=== PATIENT | male | born 1955 | race Caucasian/White ===

== ENCOUNTER 2018-12-06 11:16 | Emergency (ER) | payer MEDICARE, BC ==
[2018-12-06 11:39] VITALS: O2SAT 98
[2018-12-06 12:02] LABS: BASOPHIL % 0.4 % (0.0-0.4); Basophil (Absolute #) 0.02 (0-0.4); Eosinophil % 1.3 % (0.00-5.0); Eosinophil (Absolute #) 0.07 (0-0.5); Granulocyte Absolute (ANC) 2.94 (1.4-6.9); Granulocytes % 55.6 % (36.0-66.0); Hematocrit 48.4 % (42-50); Hemoglobin 16.6 gm/dl (12.5-18.0); Lymphocyte (Absolute #) 1.65 (1.0-4.6); Lymphocytes % 31.2 % (24.0-44.0); Mean Cell Volume 87.2 fl (78-100); Mean Corpuscular Hemoglobin 29.9 pg (26-32); Mean Corpuscular Hgb Concent. 34.3 g/dl (32-36); Mean Platelet Volume 9.3 fl (6-9.5); Monocyte (Absolute #) 0.61 (0.0-1.3); Monocytes % 11.5 % (0.0-12.0); Platelet Count 187 K/mm3 (150-450); Red Blood Count 5.55 M/mm3 (4.1-5.6); Red Cell Distribution Width 14.7 % (11.5-14.0); White Blood Count 5.3 K/mm3 (4.0-10.5)
[2018-12-06 12:12] LABS: INR 1.07 (0.8-3.0); PROTIME 12.4 SECONDS (8.83-12.87)
[2018-12-06 12:14] LABS: ALBUMIN 4.1 g/dL (3.5-5.0); ALKALINE PHOSPHATASE 78 U/L (38-126); ANION GAP 15.8 MEQ/L (5-15); BLOOD UREA NITROGEN 14 mg/dL (9-20); CHLORIDE 100 mmol/L (98-107); Calcium 9.4 mg/dL (8.4-10.2); Carbon Dioxide 26 mmol/L (22-30); Creatinine 1 1.21 mg/dL (0.66-1.25); Glucose 222 mg/dL (74-106); Potassium 4.5 mmol/L (3.5-5.1); SGOT/AST 36 U/L (17-59); SGPT/ALT 46 U/L (0-50); SODIUM 138 mmol/L (137-145); Total Protein 7.9 g/dL (6.3-8.2)
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
[2018-12-06 12:29] VITALS: BP 156/99; PULSE 73
[2018-12-06 12:49] LABS: Amphetamine,Urine NEGATIVE (NEGATIVE); Barbiturate,Urine NEGATIVE (NEGATIVE); Benzodiazepine,Urine NEGATIVE (NEGATIVE); Cocaine,Urine NEGATIVE (NEGATIVE); Methadone,Urine NEGATIVE (NEGATIVE); Opiate,Urine NEGATIVE (NEGATIVE); PCP,Urine NEGATIVE (NEGATIVE); THC,Urine NEGATIVE (NEGATIVE)
[2018-12-06 13:21] LABS: Appearance CLEAR (CLEAR); Bilirubin NEGATIVE (NEGATIVE); Blood NEGATIVE Ery/ul (0-5); Glucose 50 mg/dL (NEGATIVE); Ketones NEGATIVE (NEGATIVE); Leukocyte Esterase NEGATIVE (NEGATIVE); Mucus SLIGHT /HPF (NEGATIVE); Nitrite NEGATIVE (NEGATIVE); Protein,Urine Dip NEGATIVE (Negative); Specific Gravity 1.017 (1.005-1.025); Urobilinogen NEGATIVE mg/dL (0-1)
--- NOTE | 2018-12-06 20:40 | XRAY ---
Indication: Change in mental status. Weakness. Possible stroke. Comparison: None Portable chest is clear. Heart is not enlarged for AP portable technique. Bony thorax intact with mild degenerative changes. Impression: Nonacute chest.
--- NOTE | 2018-12-06 20:43 | XRAY ---
Indication: Change in mental status. Weakness. Possible stroke. Multiple contiguous axial images obtained through the head without contrast. Comparison: None Age-appropriate global atrophy and mild periventricular degenerative microvascular ischemia bilaterally. Right basal ganglia remote lacunar infarct. No acute intracranial hemorrhage, abnormal extra-axial fluid collection, or mass effect. Fourth ventricle is midline without hydrocephalus. Bony calvarium intact. Mild mucosal thickening inferior right maxillary sinus. Partial opacification of the right mastoid air cells. Impression: 1. Nonacute senile brain including remote right basal ganglia lacunar infarct. 2. Incidental right maxillary sinus mucosal thickening and partial opacification of the right mastoid air cells both presumed inflammatory. Comment: Preliminary interpretation was made by [facility]. No critical discrepancy. CTDI 66.59
== END 2018-12-06 13:06 | disposition short-term general hospital (02) ==
LOC: ED 11:16
DX: I63.9 Cerebral infarction, unspecified (principal)
CPT/HCPCS: 36000; 36415; 70450; 71045; 80053; 80307; 81001; 84484; 85025; 85610; 85730; 93005; 93041; 99285; G0480

== ENCOUNTER 2020-08-15 07:27 | Emergency (ER) | payer MEDICARE, BC ==
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
[2020-08-15 07:51] LABS: BASOPHIL % 0.4 % (0.0-0.4); Basophil (Absolute #) 0.04 (0-0.4); Eosinophil % 1.8 % (0.00-5.0); Eosinophil (Absolute #) 0.17 (0-0.5); Hematocrit 48.4 % (42-50); Lymphocyte (Absolute #) 1.35 (1.0-4.6); Lymphocytes % 14.4 % (24.0-44.0); Mean Cell Volume 87.7 fl (78-100); Mean Corpuscular Hgb Concent. 33.1 g/dl (32-36); Mean Platelet Volume 9.8 fl (7.5-11.0); Monocyte (Absolute #) 1.12 (0.0-1.3); Monocytes % 11.9 % (0.0-12.0); Neutrophil % 71.5 % (36.0-66.0); Platelet Count 173 K/mm3 (150-450); Red Blood Count 5.52 M/mm3 (4.1-5.6); Red Cell Distribution Width 15.5 % (11.5-14.0); White Blood Count 9.4 K/mm3 (4.0-10.5)
[2020-08-15 08:02] LABS: ALBUMIN 4.2 g/dL (3.5-5.0); ALKALINE PHOSPHATASE 85 U/L (38-126); ANION GAP 15.1 MEQ/L (5-15); BLOOD UREA NITROGEN 14 mg/dL (9-20); CHLORIDE 100 mmol/L (98-107); Calcium 9.3 mg/dL (8.4-10.2); Carbon Dioxide 22 mmol/L (22-30); Creatinine 1 1.11 mg/dL (0.66-1.25); EST GLOMERULAR FILTRATION RATE > 60.0 ML/MIN; Glucose 323 mg/dL (74-106); Potassium 4.3 mmol/L (3.5-5.1); SGOT/AST 25 U/L (17-59); SGPT/ALT 24 U/L (0-50); SODIUM 132 mmol/L (137-145); Total Protein 8.1 g/dL (6.3-8.2)
[2020-08-15 08:17] LABS: Appearance CLOUDY (CLEAR); Bacteria FEW /HPF (NEGATIVE); Bilirubin NEGATIVE (NEGATIVE); Blood SMALL Ery/ul (0-5); Epithelial Cells RARE /HPF (FEW); Glucose >=500 mg/dL (NEGATIVE); Hyaline Casts >50 /LPF (0-2); Ketones NEGATIVE (NEGATIVE); Leukocyte Esterase MODERATE (NEGATIVE); Mucus MANY /HPF (NEGATIVE); Nitrite NEGATIVE (NEGATIVE); Protein,Urine Dip 100 (Negative); Specific Gravity 1.026 (1.005-1.025); Urobilinogen 2 mg/dL (0-1); WBC 26-50 /HPF (0-5)
[2020-08-15] MEDS ORDERED: HUMULIN R IV ONE (08:24)
[2020-08-15] MEDS ORDERED: ROCEPHIN 1 Gm-D5w 50 ml Bag** 1 G/50 ML IVPB IV STA (08:24)
[2020-08-15] MEDS ORDERED: Sodium Chloride 0.9% 500 ML 500 ML IV ONE ×2 (08:24→08:50)
--- NOTE | 2020-08-15 08:43 | XRAY ---
Indication: Dizziness and numbness. Possible stroke. Multiple contiguous axial images obtained through the head without contrast. Comparison: December 06, 2018. Again age-appropriate global atrophy, mild periventricular degenerative micro-ischemia bilaterally, and old bilateral basal ganglia lacunar infarcts. Left mid parietal lobe demonstrates new small focus of old infarct. No acute intracranial hemorrhage, hydrocephalus, or mass effect. Fourth ventricle is midline. Bony calvarium intact. Inferior right maxillary sinus again demonstrates 1.5 cm polyp/retention cyst. There remains partial opacification of the right mastoid air cells. Impression: 1. New finding old left parietal infarct. 2. Again atrophy, degenerative micro-ischemia, remote basal ganglia lacunar infarcts, right maxillary sinus polyp/retention cyst, and partial opacification right mastoid air cells. 3. No acute intracranial abnormalities. 4. Follow-up CT or MRI may yield further information if there remains clinical concern. Comment: Preliminary interpretation was made by [facility]. No critical discrepancy.
[2020-08-15] MEDS ORDERED: HUMULIN R ONE (08:49)
[2020-08-15] MEDS ORDERED: ROCEPHIN 1 Gm-D5w 50 ml Bag** 1 G/50 ML IVPB IV ONE (08:50)
[2020-08-15 10:05] VITALS: BP 135/79; PULSE 82; O2SAT 98
== END 2020-08-15 10:52 | disposition home or self-care (01) ==
LOC: ED 07:27
DX: R42 Dizziness and giddiness (principal); R20.0 Anesthesia of skin; E11.65 Type 2 diabetes mellitus with hyperglycemia; N39.0 Urinary tract infection, site not specified; Z79.84 Long term (current) use of oral hypoglycemic drugs; Z79.899 Other long term (current) drug therapy; I10 Essential (primary) hypertension
CPT/HCPCS: 36415; 70450; 80053; 81001; 85025; 87086; 93005; 94760; 96360; 96365; 96374; 99284; J0696; J1815

== ENCOUNTER 2020-09-29 12:11 | Inpatient (IN) | payer MEDICARE, BC ==
[2020-09-29] MEDS ORDERED: Adacel Vial IM ONE ×2 (12:28→13:12)
[2020-09-29] MEDS ORDERED: Sodium Chloride 0.9% 1000 ML 1,000 ML IV STA ×2 (12:28→16:25)
[2020-09-29] MEDS ORDERED: VANCOMYCIN 2 GRAM/400 ML BAG 2 GM/400 ML PIGGYBACK IV ONE (12:31)
[2020-09-29] MEDS ORDERED: Zosyn INJ 4.5 GM in Sodium Chloride 100ML MINI-BAG PLUS 100 ML IV ONE (12:31)
[2020-09-29 12:37] LABS: Absolute Neutrophil Ct (ANC) 7.44 (1.4-6.9); BASOPHIL % 0.2 % (0.0-0.4); Basophil (Absolute #) 0.02 (0-0.4); Eosinophil % 1.4 % (0.00-5.0); Eosinophil (Absolute #) 0.14 (0-0.5); Hematocrit 42.9 % (42-50); Hemoglobin 13.5 gm/dl (12.5-18.0); Lymphocyte (Absolute #) 1.07 (1.0-4.6); Lymphocytes % 10.6 % (24.0-44.0); Mean Cell Volume 87.4 fl (78-100); Mean Corpuscular Hemoglobin 27.5 pg (26-32); Mean Corpuscular Hgb Concent. 31.5 g/dl (32-36); Mean Platelet Volume 9.1 fl (7.5-11.0); Monocyte (Absolute #) 1.39 (0.0-1.3); Monocytes % 13.8 % (0.0-12.0); Platelet Count 393 K/mm3 (150-450); Red Blood Count 4.91 M/mm3 (4.1-5.6); Red Cell Distribution Width 15.1 % (11.5-14.0); White Blood Count 10.1 K/mm3 (4.0-10.5)
--- NOTE | 2020-09-29 12:45 | ERPHSYRPT ---
- History of Present Illness Time Seen by Provider: 09/29/20 12:15 Source: patient Exam Limitations: no limitations Physician History: Patient is here with right lower leg infection. He is unsure of how long it has been going on for. He is unsure what antibiotics he is on. He was supposed to see Dr. Merlos today. However, he could not walk. Therefore called EMS. As I enter the room I can smell a foul smell. Patient's right leg is red and swollen and taut. Patient is unable to give an accurate history. Location: right lower leg Quality: infection, sharp Radiation: down right leg Severity: sharp Duration: unsure Timing: gradual Modifying factors/associated signs and symptoms: unsure what antibiotics he is suppose to be on Allergies/Adverse Reactions: No Known Drug Allergies Allergy (Verified 09/29/20 12:15) Home Medications: Metformin HCl 500 mg PO BID 12/06/18 [History] lisinopriL [Lisinopril] 20 mg PO BID 12/06/18 [History] Amlodipine Besylate [Norvasc] 10 mg PO DAILY 08/15/20 [History] Atorvastatin Calcium [Lipitor] 80 mg PO DAILY 08/15/20 [History] Carvedilol 12.5 mg [Coreg 12.5 mg] 12.5 mg PO DAILY 08/15/20 [History] Clopidogrel Bisulfate 75 mg [PLAVIX 75 MG Tablet] 75 mg PO DAILY 08/15/20 [History] Dapagliflozin Propanediol [Farxiga] 10 mg PO DAILY 08/15/20 [History] Metoprolol Succinate [Toprol Xl] 25 mg PO DAILY 08/15/20 [History] Tramadol HCl 50 mg [Ultram 50 mg] 50 mg PO DAILY 08/15/20 [History] Hx Tetanus, Diphtheria Vaccination/Date Given: No Hx Influenza Vaccination/Date Given: No Hx Pneumococcal Vaccination/Date Given: No - Review of Systems Constitutional: No Fever, No Chills Eyes: No Symptoms Ears, Nose, & Throat: No Symptoms Respiratory: No Cough, No Dyspnea Cardiac: No Chest Pain, No Edema, No Syncope Abdominal/Gastrointestinal: No Abdominal Pain, No Nausea, No Vomiting, No Diarrhea Genitourinary Symptoms: No Dysuria Musculoskeletal: Other (right lower leg pain , and infection ), No Back Pain, No Neck Pain Skin: No Rash Neurological: No Dizziness, No Focal Weakness, No Sensory Changes Psychological: No Symptoms Endocrine: No Symptoms All Other Systems: Reviewed and Negative - Past Medical History Pertinent Past Medical History: Yes Neurological History: Stroke, Other ENT History: No Pertinent History Cardiac History: Hypertension, Other Respiratory History: No Pertinent History Endocrine Medical History: Diabetes Type II Musculoskeletal History: Arthritis GI Medical History: No Pertinent History Psycho-Social History: No Pertinent History Male Reproductive Disorders: No Pertinent History Other Medical History: enlarged heart, head injuries from accident 25 years ago. - Past Surgical History Past Surgical History: No - Social History Smoking Status: Never smoker Exposure to second hand smoke: Yes Drug Use: none Patient Lives Alone: No - Nursing Vital Signs Nursing Vital Signs: Initial Vital Signs Temperature 98.0 F 09/29/20 12:17 Pulse Rate 78 09/29/20 12:17 Respiratory Rate 18 09/29/20 12:17 Blood Pressure 138/79 09/29/20 12:17 O2 Sat by Pulse Oximetry 98 09/29/20 12:17 Pain Scale Pain Intensity 2 - Physical Exam General Appearance: alert Eyes, Ears, Nose, Throat Exam: moist mucous membranes Neck Exam: non-tender, supple Cardiovascular/Respiratory Exam: chest non-tender, normal breath sounds, regular rate/rhythm, no respiratory distress Gastrointestinal/Abdominal Exam: non-tender, guarding Back Exam: normal inspection, No vertebral tenderness Neuro/Tendon Exam: normal sensation, normal motor functions Mental Status Exam: alert, oriented x 3, cooperative Skin Exam: normal color, warm, dry SpO2 Interpretation: normal SpO2: 98 Comments: Right lower leg is red, tender, large draining wound. The necrotic part is 10 inches X 3 inches. With redness extending past the edges. - Course Nursing assessment & vital signs reviewed: Yes Ordered Tests: Active Orders 24 hr Category Date Time Status Up With Assistance ROUTINE Activity 09/29/20 13:49 Active Admit as Inpatient ROUTINE Care 09/29/20 13:49 Active Code Status Order ROUTINE Care 09/29/20 13:49 Active EKG-ER Only STAT Care 09/29/20 12:47 Active Fall Protocol ROUTINE Care 09/29/20 13:50 Active IV Care Q6H Care 09/29/20 13:49 Active IV Insertion STAT Care 09/29/20 12:28 Active POCT Glucose Check STAT Care 09/29/20 12:28 Active Heart-Healthy Diet Diet 09/29/20 Breakfast Active LOWER LEG Stat Exams 09/29/20 12:58 Completed BLOOD CULTURE Stat Lab 09/29/20 13:00 Received CBC W DIFF AM.LAB Lab 09/30/20 04:00 Ordered CBC W DIFF Stat Lab 09/29/20 12:38 Completed CMP AM.LAB Lab 09/30/20 04:00 Ordered CMP Stat Lab 09/29/20 12:38 Completed CULTURE,WOUND Stat Lab 09/29/20 Ordered Lactic Acid AM.LAB Lab 09/30/20 04:00 Ordered Lactic Acid Stat Lab 09/29/20 12:28 Completed POCT GLUCOSE Stat Lab 09/29/20 13:08 Completed Urine Triage Profile Stat Lab 09/29/20 12:30 Ordered Medication Summary Generic Name Dose Route Start Last Admin Trade Name Freq PRN Reason Stop Dose Admin Vancomycin HCl 2 gm in 400 mls @ 133.333 mls/hr 09/29/20 12:31 Vancomycin 2 Gram/400 Ml Bag IV 09/29/20 15:30 STAT ONE Discontinued Medications Generic Name Dose Route Start Last Admin Trade Name Freq PRN Reason Stop Dose Admin Diphtheria/Tetanus/Acell Pertussis 0.5 ml 09/29/20 12:28 09/29/20 13:14 Adacel Vial IM 09/29/20 12:29 0.5 ml .ONCE ONE Administration Diphtheria/Tetanus/Acell Pertussis Confirm 09/29/20 13:12 Adacel Vial Administered 09/29/20 13:13 Dose 0.5 ml IM .STK-MED ONE Sodium Chloride 1,000 mls @ 999 mls/hr 09/29/20 12:28 09/29/20 13:16 Sodium Chloride 0.9% 1000 Ml IV 09/29/20 13:28 999 mls/hr .Q1H1M STA Administration Piperacillin Sod/Tazobactam 100 mls @ 200 mls/hr 09/29/20 12:31 09/29/20 13:15 Sod 4.5 gm/ Sodium Chloride IV 09/29/20 13:00 200 mls/hr STAT ONE Administration Sodium Chloride Confirm 09/29/20 13:12 Sodium Chloride 0.9% 1000 Ml Administered 09/29/20 13:13 Dose 1,000 mls @ ud .ROUTE .STK-MED ONE Sodium Chloride Confirm 09/29/20 13:13 Sodium Chloride 100ml Mini-Bag Plus Administered 09/29/20 13:14 Dose 100 mls @ ud IV .STK-MED ONE Piperacillin Sod/Tazobactam Sod Confirm 09/29/20 13:13 Zosyn Inj Administered 09/29/20 13:14 Dose 4.5 gm IV .STK-MED ONE Lab/Rad Data: Laboratory Result Diagrams 09/29/20 12:38 09/29/20 12:38 Laboratory Results 09/29/20 09/29/20 09/29/20 Range/Units 13:08 12:38 12:38 WBC 10.1 (4.0-10.5) K/mm3 RBC 4.91 (4.1-5.6) M/mm3 Hgb 13.5 (12.5-18.0) gm/dl Hct 42.9 (42-50) % MCV 87.4 (78-100) fl MCH 27.5 (26-32) pg MCHC 31.5 L (32-36) g/dl RDW 15.1 H (11.5-14.0) % Plt Count 393 (150-450) K/mm3 MPV 9.1 (7.5-11.0) fl Gran % 74.0 H (36.0-66.0) % Eos # (Auto) 0.14 (0-0.5) Absolute Lymphs (auto) 1.07 (1.0-4.6) Absolute Monos (auto) 1.39 H (0.0-1.3) Lymphocytes % 10.6 L (24.0-44.0) % Monocytes % 13.8 H (0.0-12.0) % Eosinophils % 1.4 (0.00-5.0) % Basophils % 0.2 (0.0-0.4) % Absolute Granulocytes 7.44 H (1.4-6.9) Basophils # 0.02 (0-0.4) Sodium 132 L (137-145) mmol/L Potassium 4.2 (3.5-5.1) mmol/L Chloride 94 L (98-107) mmol/L Carbon Dioxide 26 (22-30) mmol/L Anion Gap 15.1 H (5-15) MEQ/L BUN 18 (9-20) mg/dL Creatinine 1.14 (0.66-1.25) mg/dL Estimated GFR > 60.0 ML/MIN Glucose 231 H (74-106) mg/dL POC Glucometer 232 H (74 to 106) mg/dL Lactic Acid (0.4-2.0) Calcium 9.4 (8.4-10.2) mg/dL Total Bilirubin 0.40 (0.2-1.3) mg/dL AST 20 (17-59) U/L ALT 19 (0-50) U/L Alkaline Phosphatase 90 (38-126) U/L Serum Total Protein 8.5 H (6.3-8.2) g/dL Albumin 4.2 (3.5-5.0) g/dL 09/29/20 Range/Units 12:28 WBC (4.0-10.5) K/mm3 RBC (4.1-5.6) M/mm3 Hgb (12.5-18.0) gm/dl Hct (42-50) % MCV (78-100) fl MCH (26-32) pg MCHC (32-36) g/dl RDW (11.5-14.0) % Plt Count (150-450) K/mm3 MPV (7.5-11.0) fl Gran % (36.0-66.0) % Eos # (Auto) (0-0.5) Absolute Lymphs (auto) (1.0-4.6) Absolute Monos (auto) (0.0-1.3) Lymphocytes % (24.0-44.0) % Monocytes % (0.0-12.0) % Eosinophils % (0.00-5.0) % Basophils % (0.0-0.4) % Absolute Granulocytes (1.4-6.9) Basophils # (0-0.4) Sodium (137-145) mmol/L Potassium (3.5-5.1) mmol/L Chloride (98-107) mmol/L Carbon Dioxide (22-30) mmol/L Anion Gap (5-15) MEQ/L BUN (9-20) mg/dL Creatinine (0.66-1.25) mg/dL Estimated GFR ML/MIN Glucose (74-106) mg/dL POC Glucometer (74 to 106) mg/dL Lactic Acid 3.0 H (0.4-2.0) Calcium (8.4-10.2) mg/dL Total Bilirubin (0.2-1.3) mg/dL AST (17-59) U/L ALT (0-50) U/L Alkaline Phosphatase (38-126) U/L Serum Total Protein (6.3-8.2) g/dL Albumin (3.5-5.0) g/dL - Progress Progress: improved Progress Note: 09/29/20 13:52 Patient has obvious right lower leg infection. I did have the DPM, Dr. Bergman look at the wound in the emergency department. We did not see any obvious gas or signs of necrotizing fasciitis on x-ray. He feels that he can debride the wound on Friday. He states that he will watch it closely over the weekend. Requested that we admit to the hospital team. Patient started on vancomycin and Zosyn. Broad-spectrum coverage. Further antibiotic coverage per Dr. Merlos. I did discuss with him over the phone. Will admit the patient to the hospital. Patient is comfortable with the plan. Discussed with : Murphy Will see patient in: hospital (full admit) Counseled pt/family regarding: lab results, diagnosis, rad results - Departure Departure Disposition: In-patient Admission Clinical Impression: Infected leg abrasion Condition: Stable Critical Care Time: No Referrals: [facility] [Primary Care Provider] -
[2020-09-29 12:54] LABS: ALBUMIN 4.2 g/dL (3.5-5.0); ALKALINE PHOSPHATASE 90 U/L (38-126); ANION GAP 15.1 MEQ/L (5-15); BLOOD UREA NITROGEN 18 mg/dL (9-20); CHLORIDE 94 mmol/L (98-107); Calcium 9.4 mg/dL (8.4-10.2); Carbon Dioxide 26 mmol/L (22-30); Creatinine 1 1.14 mg/dL (0.66-1.25); EST GLOMERULAR FILTRATION RATE > 60.0 ML/MIN; Glucose 231 mg/dL (74-106); Potassium 4.2 mmol/L (3.5-5.1); SGOT/AST 20 U/L (17-59); SGPT/ALT 19 U/L (0-50); SODIUM 132 mmol/L (137-145); Total Protein 8.5 g/dL (6.3-8.2)
[2020-09-29] MEDS ORDERED: Sodium Chloride 0.9% 1000 ML 1,000 ML ONE (13:12)
[2020-09-29] MEDS ORDERED: Zosyn INJ IV ONE (13:13)
[2020-09-29] MEDS ORDERED: Sodium Chloride 100ML MINI-BAG PLUS 100 ML IV ONE (13:13)
--- NOTE | 2020-09-29 13:14 | XRAY ---
Indication: Anterior tibia/fibular wound. Comparison: None 2 view right lower leg demonstrates mid to distal anterior soft tissue swelling/irregularity presumed known wound, mild knee degenerative arthropathy, and mild vascular calcifications. No other bony, articular, or soft tissue abnormalities.
[2020-09-29 15:09] LABS: Amphetamine,Urine NEGATIVE (NEGATIVE); Barbiturate,Urine NEGATIVE (NEGATIVE); Benzodiazepine,Urine NEGATIVE (NEGATIVE); Cocaine,Urine NEGATIVE (NEGATIVE); Methadone,Urine NEGATIVE (NEGATIVE); Opiate,Urine NEGATIVE (NEGATIVE); PCP,Urine NEGATIVE (NEGATIVE); THC,Urine NEGATIVE (NEGATIVE)
[2020-09-29] MEDS ORDERED: HUMALOG SQ PRN (16:28)
[2020-09-29] MEDS ORDERED: PHARMACY DOSING REQUEST MC ONE (16:29)
[2020-09-29] MEDS: NORCO 5/325 MG PO PRN ×2 (16:51→22:03)
[2020-09-29] MEDS ORDERED: MEDICATION INTERVENTION MC SCH (17:00)
[2020-09-29] MEDS: Glucophage 500 MG PO SCH (17:45)
[2020-09-29] MEDS: Glynase 3 MG PO SCH (17:45)
[2020-09-29] MEDS: Zosyn 3.375 GM Vial 3.375 GM in Sodium Chloride 100ML MINI-BAG PLUS 100 ML IV SCH (17:46)
[2020-09-29] MEDS: MORPHINE SULFATE 2 MG INJ IV PRN (18:52)
[2020-09-29] MEDS ORDERED: NON-FORMULARY ITEM (Apixaban [Eliquis] 5 MG) PO SCH (22:00)
[2020-09-29] MEDS ORDERED: NON-FORMULARY ITEM (Metformin Hcl [Metformin Hcl] 1,000 MG) PO SCH (22:00)
[2020-09-29] MEDS: Klor Con 10 MEQ PO SCH (22:03)
[2020-09-29] MEDS: COREG 12.5 MG PO SCH (22:04)
[2020-09-29] MEDS: Lopressor 25MG Tab PO SCH (22:04)
[2020-09-30] MEDS: Zosyn 3.375 GM Vial 3.375 GM in Sodium Chloride 100ML MINI-BAG PLUS 100 ML IV SCH ×4 (03:34→18:43)
[2020-09-30] MEDS: NORCO 5/325 MG PO PRN (03:34)
[2020-09-30 06:29] LABS: Absolute Neutrophil Ct (ANC) 7.09 (1.4-6.9); BASOPHIL % 0.1 % (0.0-0.4); Basophil (Absolute #) 0.01 (0-0.4); Eosinophil % 0.9 % (0.00-5.0); Eosinophil (Absolute #) 0.09 (0-0.5); Hematocrit 39.6 % (42-50); Hemoglobin 12.3 gm/dl (12.5-18.0); Mean Cell Volume 87.4 fl (78-100); Mean Corpuscular Hemoglobin 27.2 pg (26-32); Mean Corpuscular Hgb Concent. 31.1 g/dl (32-36); Mean Platelet Volume 9.1 fl (7.5-11.0); Monocyte (Absolute #) 1.39 (0.0-1.3); Monocytes % 13.9 % (0.0-12.0); Neutrophil % 71.1 % (36.0-66.0); Platelet Count 364 K/mm3 (150-450); Red Blood Count 4.53 M/mm3 (4.1-5.6); Red Cell Distribution Width 14.9 % (11.5-14.0)
[2020-09-30 06:53] LABS: ALBUMIN 3.6 g/dL (3.5-5.0); ALKALINE PHOSPHATASE 85 U/L (38-126); ANION GAP 11.9 MEQ/L (5-15); BLOOD UREA NITROGEN 15 mg/dL (9-20); CHLORIDE 101 mmol/L (98-107); Calcium 8.4 mg/dL (8.4-10.2); Carbon Dioxide 26 mmol/L (22-30); Creatinine 1 1.17 mg/dL (0.66-1.25); EST GLOMERULAR FILTRATION RATE > 60.0 ML/MIN; Glucose 172 mg/dL (74-106); Potassium 3.8 mmol/L (3.5-5.1); SGOT/AST 17 U/L (17-59); SGPT/ALT 15 U/L (0-50); SODIUM 134 mmol/L (137-145); Total Protein 7.6 g/dL (6.3-8.2)
--- NOTE | 2020-09-30 09:49 | PCM.NOTE ---
Date and Time: 09/30/20 0949 Subjective Assessment: 64 yr old male seen and examined this am following admission for leg wound/infection. Patient reports that he has been dealing with this for months. He reports that he has had drainage from the wound. He reports that he has been checking his BS and BPs at home and reports they have been well controlled. He denies any other issues at this time. - Review of Systems Constitutional: No Fever, No Night Sweats Eyes: No Symptoms Ears, Nose, & Throat: No Symptoms Respiratory: No Cough, No Short Of Breath, No Wheezing Cardiac: No Chest Pain, No Edema Abdominal/Gastrointestinal: No Abdominal Pain, No Nausea, No Vomiting, No Diarrhea, No Constipation Genitourinary Symptoms: No Symptoms Skin: Other (R lower extremity leg wound) Neurological: No Symptoms Psychological: No Alcohol Abuse, No Drug Abuse Hematologic/Lymphatic: No Symptoms Objective Exam General Appearance: obese Neurologic Exam: alert, oriented x 3, cooperative, No disoriented, No confusion, No agitation Skin Exam: other (R lower extremity wound that has dressing on it and drainage that is present but has not soaked through. Malodorous) Wound Assessment: Skin/Wound Assessment Wound/Incision Assessment Start: 09/29/20 19:09 Text: Status: Active Freq: Q8H Protocol: Document 09/30/20 04:00 LB (Rec: 09/30/20 05:01 LB [id number]) Wound/Incision Assessment Right Anterior Calf Wound Assessment Shift Assessment Wound Type Stasis Ulcer Wound Stage Non Pressure Wound Dressing Status Dry & Intact Drainage Amount Minimal Drainage Odor Foul Odor Primary Dressing Non-Adherent Gauze Pads Secondary Dressing Gauze Roll/Wrap Comment dressing intact, shadowing present Wound Photo Photo Taken Yes Eye Exam: eyes nml inspection, No scleral icterus Ears, Nose, Throat Exam: moist mucous membranes, other (Halotosis) Neck Exam: normal inspection Respiratory Exam: normal breath sounds, No chest tenderness, No lungs clear, No respiratory distress, No diminished breath sounds, No crackles/rales, No rhonchi, No wheezing Cardiovascular Exam: regular rate/rhythm, normal heart sounds, No murmur, No friction rub, No gallop Gastrointestinal/Abdomen Exam: soft, normal bowel sounds, No tenderness, No distention, No mass, No guarding OBJECTIVE DATA Vital Signs: Vital Signs - 24 hr Temp Pulse Resp BP Pulse Ox 09/30/20 07:00 97.9 F 64 18 105/56 95 09/30/20 04:00 97.9 F 90 16 137/66 94 L 09/30/20 00:00 98.8 F 95 H 20 172/79 95 09/29/20 19:53 98.5 F 87 16 165/74 95 09/29/20 14:55 98.6 F 77 18 138/66 97 09/29/20 14:54 98.6 F 77 18 138/66 97 09/29/20 14:18 98.6 F 77 18 138/66 97 09/29/20 13:53 98 09/29/20 13:34 73 18 126/70 96 09/29/20 12:17 98.0 F 78 18 138/79 98 Pain Assessment - Last Documented Pain Intensity 3 Pain Scale Used 0-10 Pain Scale Intake and Output: Intake & Output 09/27/20 09/28/20 09/29/20 09/30/20 11:59 11:59 11:59 11:59 Intake Total 1656 Output Total 1650 Balance 6 Weight 119.9 kg Lab Results: Lab Results-Last 24 Hours 09/29/20 09/29/20 09/29/20 Range/Units 12:28 12:38 12:38 WBC 10.1 (4.0-10.5) K/mm3 RBC 4.91 (4.1-5.6) M/mm3 Hgb 13.5 (12.5-18.0) gm/dl Hct 42.9 (42-50) % MCV 87.4 (78-100) fl MCH 27.5 (26-32) pg MCHC 31.5 L (32-36) g/dl RDW 15.1 H (11.5-14.0) % Plt Count 393 (150-450) K/mm3 MPV 9.1 (7.5-11.0) fl Gran % 74.0 H (36.0-66.0) % Eos # (Auto) 0.14 (0-0.5) Absolute Lymphs (auto) 1.07 (1.0-4.6) Absolute Monos (auto) 1.39 H (0.0-1.3) Lymphocytes % 10.6 L (24.0-44.0) % Monocytes % 13.8 H (0.0-12.0) % Eosinophils % 1.4 (0.00-5.0) % Basophils % 0.2 (0.0-0.4) % Absolute Granulocytes 7.44 H (1.4-6.9) Basophils # 0.02 (0-0.4) Sodium 132 L (137-145) mmol/L Potassium 4.2 (3.5-5.1) mmol/L Chloride 94 L (98-107) mmol/L Carbon Dioxide 26 (22-30) mmol/L Anion Gap 15.1 H (5-15) MEQ/L BUN 18 (9-20) mg/dL Creatinine 1.14 (0.66-1.25) mg/dL Estimated GFR > 60.0 ML/MIN Glucose 231 H (74-106) mg/dL POC Glucometer (74 to 106) mg/dL Lactic Acid 3.0 H (0.4-2.0) Calcium 9.4 (8.4-10.2) mg/dL Total Bilirubin 0.40 (0.2-1.3) mg/dL AST 20 (17-59) U/L ALT 19 (0-50) U/L Alkaline Phosphatase 90 (38-126) U/L Serum Total Protein 8.5 H (6.3-8.2) g/dL Albumin 4.2 (3.5-5.0) g/dL Urine Opiates Level (NEGATIVE) Ur Methadone (NEGATIVE) Urine Barbiturates (NEGATIVE) Ur Phencyclidine (PCP) (NEGATIVE) Urine Amphetamine (NEGATIVE) U Benzodiazepine Level (NEGATIVE) Urine Cocaine (NEGATIVE) Urine Marijuana (THC) (NEGATIVE) 09/29/20 09/29/20 09/29/20 Range/Units 13:08 14:39 14:45 WBC (4.0-10.5) K/mm3 RBC (4.1-5.6) M/mm3 Hgb (12.5-18.0) gm/dl Hct (42-50) % MCV (78-100) fl MCH (26-32) pg MCHC (32-36) g/dl RDW (11.5-14.0) % Plt Count (150-450) K/mm3 MPV (7.5-11.0) fl Gran % (36.0-66.0) % Eos # (Auto) (0-0.5) Absolute Lymphs (auto) (1.0-4.6) Absolute Monos (auto) (0.0-1.3) Lymphocytes % (24.0-44.0) % Monocytes % (0.0-12.0) % Eosinophils % (0.00-5.0) % Basophils % (0.0-0.4) % Absolute Granulocytes (1.4-6.9) Basophils # (0-0.4) Sodium (137-145) mmol/L Potassium (3.5-5.1) mmol/L Chloride (98-107) mmol/L Carbon Dioxide (22-30) mmol/L Anion Gap (5-15) MEQ/L BUN (9-20) mg/dL Creatinine (0.66-1.25) mg/dL Estimated GFR ML/MIN Glucose (74-106) mg/dL POC Glucometer 232 H (74 to 106) mg/dL Lactic Acid 3.3 H (0.4-2.0) Calcium (8.4-10.2) mg/dL Total Bilirubin (0.2-1.3) mg/dL AST (17-59) U/L ALT (0-50) U/L Alkaline Phosphatase (38-126) U/L Serum Total Protein (6.3-8.2) g/dL Albumin (3.5-5.0) g/dL Urine Opiates Level NEGATIVE (NEGATIVE) Ur Methadone NEGATIVE (NEGATIVE) Urine Barbiturates NEGATIVE (NEGATIVE) Ur Phencyclidine (PCP) NEGATIVE (NEGATIVE) Urine Amphetamine NEGATIVE (NEGATIVE) U Benzodiazepine Level NEGATIVE (NEGATIVE) Urine Cocaine NEGATIVE (NEGATIVE) Urine Marijuana (THC) NEGATIVE (NEGATIVE) 09/29/20 09/29/20 09/29/20 Range/Units 15:49 17:09 20:25 WBC (4.0-10.5) K/mm3 RBC (4.1-5.6) M/mm3 Hgb (12.5-18.0) gm/dl Hct (42-50) % MCV (78-100) fl MCH (26-32) pg MCHC (32-36) g/dl RDW (11.5-14.0) % Plt Count (150-450) K/mm3 MPV (7.5-11.0) fl Gran % (36.0-66.0) % Eos # (Auto) (0-0.5) Absolute Lymphs (auto) (1.0-4.6) Absolute Monos (auto) (0.0-1.3) Lymphocytes % (24.0-44.0) % Monocytes % (0.0-12.0) % Eosinophils % (0.00-5.0) % Basophils % (0.0-0.4) % Absolute Granulocytes (1.4-6.9) Basophils # (0-0.4) Sodium (137-145) mmol/L Potassium (3.5-5.1) mmol/L Chloride (98-107) mmol/L Carbon Dioxide (22-30) mmol/L Anion Gap (5-15) MEQ/L BUN (9-20) mg/dL Creatinine (0.66-1.25) mg/dL Estimated GFR ML/MIN Glucose (74-106) mg/dL POC Glucometer 184 H 132 H (74 to 106) mg/dL Lactic Acid 2.0 (0.4-2.0) Calcium (8.4-10.2) mg/dL Total Bilirubin (0.2-1.3) mg/dL AST (17-59) U/L ALT (0-50) U/L Alkaline Phosphatase (38-126) U/L Serum Total Protein (6.3-8.2) g/dL Albumin (3.5-5.0) g/dL Urine Opiates Level (NEGATIVE) Ur Methadone (NEGATIVE) Urine Barbiturates (NEGATIVE) Ur Phencyclidine (PCP) (NEGATIVE) Urine Amphetamine (NEGATIVE) U Benzodiazepine Level (NEGATIVE) Urine Cocaine (NEGATIVE) Urine Marijuana (THC) (NEGATIVE) 09/30/20 09/30/20 09/30/20 Range/Units 05:20 05:20 05:35 WBC 10.0 (4.0-10.5) K/mm3 RBC 4.53 (4.1-5.6) M/mm3 Hgb 12.3 L (12.5-18.0) gm/dl Hct 39.6 L (42-50) % MCV 87.4 (78-100) fl MCH 27.2 (26-32) pg MCHC 31.1 L (32-36) g/dl RDW 14.9 H (11.5-14.0) % Plt Count 364 (150-450) K/mm3 MPV 9.1 (7.5-11.0) fl Gran % 71.1 H (36.0-66.0) % Eos # (Auto) 0.09 (0-0.5) Absolute Lymphs (auto) 1.40 (1.0-4.6) Absolute Monos (auto) 1.39 H (0.0-1.3) Lymphocytes % 14.0 L (24.0-44.0) % Monocytes % 13.9 H (0.0-12.0) % Eosinophils % 0.9 (0.00-5.0) % Basophils % 0.1 (0.0-0.4) % Absolute Granulocytes 7.09 H (1.4-6.9) Basophils # 0.01 (0-0.4) Sodium 134 L (137-145) mmol/L Potassium 3.8 (3.5-5.1) mmol/L Chloride 101 (98-107) mmol/L Carbon Dioxide 26 (22-30) mmol/L Anion Gap 11.9 (5-15) MEQ/L BUN 15 (9-20) mg/dL Creatinine 1.17 (0.66-1.25) mg/dL Estimated GFR > 60.0 ML/MIN Glucose 172 H (74-106) mg/dL POC Glucometer (74 to 106) mg/dL Lactic Acid 2.0 (0.4-2.0) Calcium 8.4 (8.4-10.2) mg/dL Total Bilirubin 0.30 (0.2-1.3) mg/dL AST 17 (17-59) U/L ALT 15 (0-50) U/L Alkaline Phosphatase 85 (38-126) U/L Serum Total Protein 7.6 (6.3-8.2) g/dL Albumin 3.6 (3.5-5.0) g/dL Urine Opiates Level (NEGATIVE) Ur Methadone (NEGATIVE) Urine Barbiturates (NEGATIVE) Ur Phencyclidine (PCP) (NEGATIVE) Urine Amphetamine (NEGATIVE) U Benzodiazepine Level (NEGATIVE) Urine Cocaine (NEGATIVE) Urine Marijuana (THC) (NEGATIVE) 09/30/20 Range/Units 06:48 WBC (4.0-10.5) K/mm3 RBC (4.1-5.6) M/mm3 Hgb (12.5-18.0) gm/dl Hct (42-50) % MCV (78-100) fl MCH (26-32) pg MCHC (32-36) g/dl RDW (11.5-14.0) % Plt Count (150-450) K/mm3 MPV (7.5-11.0) fl Gran % (36.0-66.0) % Eos # (Auto) (0-0.5) Absolute Lymphs (auto) (1.0-4.6) Absolute Monos (auto) (0.0-1.3) Lymphocytes % (24.0-44.0) % Monocytes % (0.0-12.0) % Eosinophils % (0.00-5.0) % Basophils % (0.0-0.4) % Absolute Granulocytes (1.4-6.9) Basophils # (0-0.4) Sodium (137-145) mmol/L Potassium (3.5-5.1) mmol/L Chloride (98-107) mmol/L Carbon Dioxide (22-30) mmol/L Anion Gap (5-15) MEQ/L BUN (9-20) mg/dL Creatinine (0.66-1.25) mg/dL Estimated GFR ML/MIN Glucose (74-106) mg/dL POC Glucometer 122 H (74 to 106) mg/dL Lactic Acid (0.4-2.0) Calcium (8.4-10.2) mg/dL Total Bilirubin (0.2-1.3) mg/dL AST (17-59) U/L ALT (0-50) U/L Alkaline Phosphatase (38-126) U/L Serum Total Protein (6.3-8.2) g/dL Albumin (3.5-5.0) g/dL Urine Opiates Level (NEGATIVE) Ur Methadone (NEGATIVE) Urine Barbiturates (NEGATIVE) Ur Phencyclidine (PCP) (NEGATIVE) Urine Amphetamine (NEGATIVE) U Benzodiazepine Level (NEGATIVE) Urine Cocaine (NEGATIVE) Urine Marijuana (THC) (NEGATIVE) Radiology Exams: Radiology Procedures Category Date Time Status LOWER LEG Stat Exams 09/29/20 12:58 Completed Assessment/Plan (1) Infected leg abrasion Current Visit: Yes Status: Acute Assessment & Plan: Patient had general surgery consult and will be going to OR for possible debridment possible BKA. Patient is on IV antibiotics. Wound culture shows gram neg but still pending and blood cultures still pending. Will follow up following surgical procedure and follow Surgery's recs. Patient will likely has PT consult ordered. Code(s): S80.819A - ABRASION, UNSPECIFIED LOWER LEG, INITIAL ENCOUNTER; L08.9 - LOCAL INFECTION OF THE SKIN AND SUBCUTANEOUS TISSUE, UNSP (2) Diabetes Current Visit: Yes Status: Acute Assessment & Plan: Patient is on diabetic diet and BS are AC/HS. Patient will continue with routine home meds Code(s): E11.9 - TYPE 2 DIABETES MELLITUS WITHOUT COMPLICATIONS (3) Hypertension Current Visit: Yes Status: Acute Assessment & Plan: Will continue on routine home meds Code(s): I10 - ESSENTIAL (PRIMARY) HYPERTENSION
[2020-09-30] MEDS: Lactated Ringers 1,000 ML IV SCH (09:50)
[2020-09-30] MEDS ORDERED: NON-FORMULARY ITEM (Rosuvastatin Calcium [Rosuvastatin Calcium] 40 MG) PO SCH (10:00)
[2020-09-30] MEDS ORDERED: NON-FORMULARY ITEM (Amlodipine Besylate [Norvasc] 10 MG) PO SCH (10:00)
[2020-09-30] MEDS ORDERED: BABY ASPIRIN 81 MG CHEW PO SCH (10:00)
[2020-09-30] MEDS ORDERED: NON-FORMULARY ITEM (Dapagliflozin Propanediol [Farxiga] 10 MG) PO SCH (10:00)
[2020-09-30] MEDS ORDERED: Lactated Ringers 1,000 ML IV ONE (10:42)
[2020-09-30] MEDS ORDERED: SUBLIMAZE 100 MCG/2 ML ONE ×3 (11:01→12:42)
[2020-09-30] MEDS ORDERED: Ketamine HCl 50 MG/ML ONE (11:01)
[2020-09-30] MEDS ORDERED: Xylocaine-Mpf 2% 5 Ml Vial ONE (11:01)
[2020-09-30] MEDS ORDERED: DIPRIVAN 200 MG/20 ML IV ONE ×2 (11:01→12:03)
[2020-09-30] MEDS ORDERED: Versed 2 MG/2 ML Injection ONE (11:02)
[2020-09-30] MEDS: Glucophage 500 MG PO SCH ×2 (11:27→17:44)
[2020-09-30] MEDS: ECOTRIN 81 MG PO SCH (11:28)
[2020-09-30] MEDS: COREG 12.5 MG PO SCH ×2 (11:28→21:42)
[2020-09-30] MEDS: Klor Con 10 MEQ PO SCH ×2 (11:28→21:42)
[2020-09-30] MEDS: Glynase 3 MG PO SCH ×2 (11:28→17:44)
[2020-09-30] MEDS: Lasix 40 MG PO SCH (11:28)
[2020-09-30] MEDS: Lopressor 25MG Tab PO SCH ×2 (11:28→21:42)
[2020-09-30] MEDS: NORVASC 5 MG PO SCH (11:29)
[2020-09-30] MEDS ORDERED: Triple Antibiotic Ointment ONE (12:06)
[2020-09-30] MEDS ORDERED: TORAdol 30 mg Injection ONE (12:42)
[2020-09-30] MEDS ORDERED: TYLENOL 325 MG PO PRN (14:19)
[2020-09-30] MEDS ORDERED: ELIQUIS 2.5 MG TABLET ONE (21:40)
[2020-09-30] MEDS: ZOCOR 20MG PO SCH (21:41)
[2020-09-30] MEDS: ELIQUIS 2.5 MG TABLET PO SCH (21:45)
[2020-10-01] MEDS: Zosyn 3.375 GM Vial 3.375 GM in Sodium Chloride 100ML MINI-BAG PLUS 100 ML IV SCH ×5 (00:37→23:41)
[2020-10-01] MEDS: NORCO 5/325 MG PO PRN ×5 (05:07→21:56)
[2020-10-01] MEDS: MORPHINE SULFATE 2 MG INJ IV PRN ×2 (05:48→23:09)
[2020-10-01 06:00] LABS: Hemoglobin 12.6 gm/dl (12.5-18.0); Mean Cell Volume 87.6 fl (78-100); Mean Corpuscular Hemoglobin 26.9 pg (26-32); Mean Corpuscular Hgb Concent. 30.7 g/dl (32-36); Mean Platelet Volume 8.9 fl (7.5-11.0); Platelet Count 404 K/mm3 (150-450); Red Blood Count 4.68 M/mm3 (4.1-5.6); White Blood Count 10.2 K/mm3 (4.0-10.5)
[2020-10-01] MEDS: Glucophage 500 MG PO SCH ×2 (09:01→17:20)
[2020-10-01] MEDS: COREG 12.5 MG PO SCH ×2 (09:02→21:55)
[2020-10-01] MEDS: ECOTRIN 81 MG PO SCH (09:02)
[2020-10-01] MEDS: Glynase 3 MG PO SCH ×2 (09:02→17:21)
[2020-10-01] MEDS: ELIQUIS 2.5 MG TABLET PO SCH ×2 (09:03→21:56)
[2020-10-01] MEDS: Lopressor 25MG Tab PO SCH ×2 (09:03→21:56)
[2020-10-01] MEDS: Lasix 40 MG PO SCH (09:03)
[2020-10-01] MEDS: Klor Con 10 MEQ PO SCH ×2 (09:03→21:55)
[2020-10-01] MEDS: NORVASC 5 MG PO SCH (09:04)
[2020-10-01] MEDS ORDERED: PHARMACY DOSING REQUIRED: VANCOMYCIN IV STA (09:44)
[2020-10-01] MEDS: Colace 100 MG PO SCH ×2 (10:23→21:55)
[2020-10-01] MEDS: VANCOMYCIN 1.25 GM/250 ML BAG 1.25 GM/250 ML PIGGYBACK IV SCH ×2 (10:57→21:56)
--- NOTE | 2020-10-01 14:07 | PCM.NOTE ---
Date and Time: 10/01/20 1861 Subjective Assessment: 64 yr old male seen and examined this am following surgical debridement of R anterior lower extremity. Patient reports that he was able to get up and go to the bathroom but he was having a great deal of pain. He denies any other concerns this am. Patient reports history or R sided weakness following a stroke a few years ago. He reports that he has gotten a lot of mobility back but continues to have numbness of R side. Patient reports constipation this am. - Review of Systems Constitutional: No Symptoms Eyes: No Symptoms Ears, Nose, & Throat: No Symptoms Respiratory: No Symptoms Cardiac: No Symptoms Abdominal/Gastrointestinal: Constipation Genitourinary Symptoms: No Symptoms Musculoskeletal: Other (R lower extremity pain) Skin: Other (Right anterior tib/fib wound) Neurological: No Symptoms Psychological: No Symptoms Objective Exam General Appearance: mild distress, alert, obese Neurologic Exam: alert, oriented x 3, cooperative, normal mood/affect, other (mild speech delay), No disoriented, No confusion, No agitation Skin Exam: normal color, warm, dry, other (R anterior tib/fib covered in dressings with scant drainage present.), No rash Wound Assessment: Skin/Wound Assessment Wound/Incision Assessment Start: 09/29/20 19:09 Text: Status: Active Freq: Q8H Protocol: Document 10/01/20 05:00 LB (Rec: 10/01/20 05:24 LB [id number]) Wound/Incision Assessment Right Anterior Calf Wound Assessment Shift Assessment Wound Type Stasis Ulcer Wound Stage Non Pressure Wound Drainage Amount Minimal Drainage Description Sanguineous Drainage Odor Foul Odor Secondary Dressing Gauze Roll/Wrap Comment dressing intact, small amount of drainage noted on bandage and pillow case Wound Photo Comment: photos in chart Eye Exam: eyes nml inspection, No scleral icterus Ears, Nose, Throat Exam: moist mucous membranes, other (halotosis) Respiratory Exam: normal breath sounds, lungs clear, No chest tenderness, No respiratory distress, No diminished breath sounds, No crackles/rales, No rhonchi, No wheezing Cardiovascular Exam: regular rate/rhythm, normal heart sounds, No murmur, No friction rub, No gallop Gastrointestinal/Abdomen Exam: soft, other (hyperactive bowel sounds) Extremity Exam: other (R lower extremity with dressings intact and scant drainage) Male Genitalia Exam: deferred Rectal Exam: deferred OBJECTIVE DATA Vital Signs: Vital Signs - 24 hr Temp Pulse Resp BP Pulse Ox 10/01/20 12:00 98.1 F 69 16 124/58 96 10/01/20 07:42 98.2 F 71 16 149/77 94 L 10/01/20 03:38 98.6 F 84 20 120/64 95 10/01/20 00:00 98.6 F 94 H 22 142/69 94 L 09/30/20 20:00 97.7 F 81 19 130/67 95 09/30/20 16:00 80 18 148/76 93 L 09/30/20 15:00 86 20 145/76 92 L 09/30/20 14:00 84 18 142/74 94 L Pain Assessment - Last Documented Pain Intensity 10 Pain Scale Used 0-10 Pain Scale Intake and Output: Intake & Output 09/29/20 09/30/20 10/01/20 10/02/20 11:59 11:59 11:59 11:59 Intake Total 1656 1736 380 Output Total 1650 2025 600 Balance 6 -289 -220 Weight 119.9 kg Lab Results: Lab Results-Last 24 Hours 09/30/20 09/30/20 10/01/20 Range/Units 16:34 20:22 05:22 WBC 10.2 (4.0-10.5) K/mm3 RBC 4.68 (4.1-5.6) M/mm3 Hgb 12.6 (12.5-18.0) gm/dl Hct 41.0 L (42-50) % MCV 87.6 (78-100) fl MCH 26.9 (26-32) pg MCHC 30.7 L (32-36) g/dl RDW 15.0 H (11.5-14.0) % Plt Count 404 (150-450) K/mm3 MPV 8.9 (7.5-11.0) fl POC Glucometer 76 133 H (74 to 106) mg/dL 10/01/20 10/01/20 Range/Units 07:19 11:35 WBC (4.0-10.5) K/mm3 RBC (4.1-5.6) M/mm3 Hgb (12.5-18.0) gm/dl Hct (42-50) % MCV (78-100) fl MCH (26-32) pg MCHC (32-36) g/dl RDW (11.5-14.0) % Plt Count (150-450) K/mm3 MPV (7.5-11.0) fl POC Glucometer 107 H 116 H (74 to 106) mg/dL Radiology Exams: Radiology Procedures Category Date Time Status LOWER LEG Stat Exams 09/29/20 12:58 Completed Assessment/Plan (1) Infected leg abrasion Current Visit: Yes Status: Acute Assessment & Plan: Patient had surgical procedure performed yesterday. Please refer to their note for details. Patient has had positive wound cultures and is on zosyn and vanc. Patient will likely need PICC placement for exterminator termite IV antibiotic therapy. Patient will also require home care that includes PT and wound care due to limited ability to get to hospital for therapy. Code(s): S80.819A - ABRASION, UNSPECIFIED LOWER LEG, INITIAL ENCOUNTER; L08.9 - LOCAL INFECTION OF THE SKIN AND SUBCUTANEOUS TISSUE, UNSP (2) Diabetes Current Visit: Yes Status: Acute Assessment & Plan: Patient reports well controlled at home. BS ACHS and routine home meds. Code(s): E11.9 - TYPE 2 DIABETES MELLITUS WITHOUT COMPLICATIONS (3) Hypertension Current Visit: Yes Status: Acute Assessment & Plan: BP is being monitored as inpatient. Will continue routine home meds Code(s): I10 - ESSENTIAL (PRIMARY) HYPERTENSION (4) Constipation Current Visit: Yes Status: Acute Assessment & Plan: Likely related to opiod pain medication. Will start on stool softener Code(s): K59.00 - CONSTIPATION, UNSPECIFIED
[2020-10-01] MEDS: Lactated Ringers 1,000 ML IV SCH (19:58)
[2020-10-01] MEDS: ZOCOR 20MG PO SCH (21:55)
[2020-10-02] MEDS: NORCO 5/325 MG PO PRN ×4 (06:04→22:12)
[2020-10-02] MEDS: Zosyn 3.375 GM Vial 3.375 GM in Sodium Chloride 100ML MINI-BAG PLUS 100 ML IV SCH ×3 (06:04→17:05)
[2020-10-02] MEDS: Glucophage 500 MG PO SCH ×2 (08:14→17:05)
[2020-10-02] MEDS: Glynase 3 MG PO SCH ×2 (08:14→17:05)
[2020-10-02] MEDS: ELIQUIS 2.5 MG TABLET PO SCH ×2 (09:14→23:49)
[2020-10-02] MEDS: Lasix 40 MG PO SCH (09:14)
[2020-10-02] MEDS: Colace 100 MG PO SCH ×2 (09:14→22:13)
[2020-10-02] MEDS: Klor Con 10 MEQ PO SCH ×2 (09:14→22:12)
[2020-10-02] MEDS: NORVASC 5 MG PO SCH (09:14)
[2020-10-02] MEDS: Lopressor 25MG Tab PO SCH ×2 (09:15→22:12)
[2020-10-02] MEDS: COREG 12.5 MG PO SCH ×2 (09:15→22:13)
[2020-10-02] MEDS: ECOTRIN 81 MG PO SCH (09:15)
--- NOTE | 2020-10-02 10:23 | HP ---
CHIEF COMPLAINT: Foul smelling wound over the right leg concerning for gangrene. HISTORY OF PRESENT ILLNESS: The patient was seen in the emergency room and admitted to the hospital for IV antibiotics. The patient was noted to have elevated lactic acid level concerning for developing sepsis. The patient has not seen me for quite some time in the office. Apparently he has been seeing a can solderer but this has developed well past the time in which I feel that she can save the leg. I am asking for surgical consultation for possibility of doing below knee amputation versus debridement and skin grafting. The patient has no palpable pulse in the right foot. PAST MEDICAL/SURGICAL HISTORY: Significant for diabetes mellitus type II which has not been well controlled or followed. HOME MEDICATIONS: Currently have been Metformin 500 mg b.i.d., lisinopril 20 mg b.i.d., amlodipine 10 mg a day, atorvastatin 40 mg a day, carvedilol 12.5 mg b.i.d., Plavix 75 mg a day, Farxiga 10 mg a day, metoprolol XL 25 mg a day, tramadol 50 mg PRN for pain. ALLERGIES: NKDA. PHYSICAL EXAMINATION: His vital signs on admission showed his temperature to be 98.0F, pulse 78, respiratory rate 18 and blood pressure 138/79. O2 saturation was 98%. HEENT: Normocephalic, atraumatic. Pupils equal round reactive to light. Extraocular movements intact. Oropharynx is pink and moist. NECK: Supple without lymphadenopathy, thyromegaly or JVD. CHEST: Clear to auscultation. HEART: Regular rate and rhythm. ABDOMEN: Soft. No palpable masses. EXTREMITIES: Revealed a foul smelling, gangrenous appearing wounds on the anterior aspect of the hernandez extending from the ankle to almost the knee, very foul smelling. LAB DATA AND TESTS: The patient's laboratory studies show lactic acid of 3.3. His urine drug screen was negative. His white count was 10,100, PLT count 393,000. Lactic acid initially was 3.0 prior to the fluid bolus and actually increased to 3.3. The patient has been started on Zosyn and Vancomycin. His sugar was 231, BUN 18, creatinine 1.14. Slightly low sodium at 132. Liver enzymes were normal. The patient's right lower leg x-ray showed mid to distal anterior soft tissue swelling/irregularity presumed known wound, mild knee degenerative arthropathy, and mild vascular calcifications. No other bony, articular, or soft tissue abnormalities were noted. ASSESSMENT: A patient with what appears to be gangrenous area over his hernandez with podiatry consult. We will also ask the surgeons to be included in decision making. He has been placed on Zosyn and Vancomycin as we are concerned for the patient developing sepsis. He does have elevated lactic acid. He is receiving bolus of fluids presently. We will follow the lactic acid until it seems to be dropping.
[2020-10-02] MEDS: VANCOMYCIN 1.25 GM/250 ML BAG 1.25 GM/250 ML PIGGYBACK IV SCH ×2 (10:25→22:40)
--- NOTE | 2020-10-02 11:01 | XRAY ---
Indication: Evaluate blood flow for healing. Right lower leg bandage. Two-dimensional sonogram and color Doppler imaging of the major arteries of the left and right leg was performed. Comparison: None Examination of the right leg demonstrates visualized common femoral, deep femoral, superficial femoral, popliteal, and dorsal pedal arteries to be negative for critical stenosis/obstruction. Arterial waveforms are multiphasic in the common femoral and superficial femoral arteries. Arterial waveforms are monophasic in the popliteal and dorsal pedal arteries. Arteriosclerotic disease in the posterior tibial artery with attenuated monophasic arterial waveforms. Right arm brachial pressure is 147. Right ankle pressure not obtained due to overlying bandage material and therefore ankle brachial index not calculated. Examination of the left leg demonstrates patent common femoral, deep femoral, superficial femoral, and popliteal arteries with multiphasic arterial waveforms. Arteriosclerotic disease in the posterior tibial and dorsal pedal arteries with monophasic arterial waveforms. Left arm brachial pressure is 136. Left ankle pressure is 144. Ankle brachial index is 0.98, normal. Impression: 1. Scattered arteriosclerosis disease in both lower legs. CTA abdominal aorta with bilateral runoff may yield further information. 2. Left BRENDA 0.98 is normal. Right BRENDA not calculated due to overlying bandage material.
[2020-10-02] MEDS: MORPHINE SULFATE 2 MG INJ IV PRN (11:03)
--- NOTE | 2020-10-02 11:13 | CONS ---
CONSULT DATE: 09/29/2020 REASON FOR CONSULT: Marked infectious process right lower extremity. HISTORY: The patient does not really know how long he has had this. He is 64 years old. He has been diabetic for life. He has had some issues here for some time but did look progressive. He was seen and brought in today with a black eschar along the right anterior hernandez measuring about 4 inches across and 10 or 12 inches in length and has some smaller satellite areas. He was examined in room 118 on 09/29/2020 by myself. He is pretty jovial. His lactic acid was satisfactory. With a 4x4 followed by scissors and pickups, about 80% of the eschar was able to be debrided off at the bedside. There were no palpable pulses in the PT or DP but he had a fairly erythematous bed underneath this 80% that was debrided. The other area of eschar was still quite tight and will even be a little hard to debride in the operating room. All the areas were unroofed and we were certainly not leaving any buried pus under pressure this evening. I think it very adequate bedside debridement for the moment is done. He is on IV antibiotics. Culture has been obtained. His left leg is satisfactory. He clearly has combined arterial disease and venous stasis disease with probably venous stasis ulcer getting infected with his long standing diabetic status. PLAN: We will further debride him in the OR.
--- NOTE | 2020-10-02 11:21 | OP ---
SURGERY DATE/TIME: 09/30/2020 1136 PREOPERATIVE DIAGNOSIS: Major infection with skin loss right lower extremity. POSTOPERATIVE DIAGNOSIS: Full thickness debridement of the rest of the large wound. The wound was measuring 14 cm x 8 cm on the right anterior hernandez. PROCEDURE: Debridement right lower extremity. SURGEON: Declan Fraga M.D. ANESTHESIA: General. COMPLICATIONS: None. CONDITION: Stable. INDICATION: The patient had debridement at the bedside yesterday. There was a portion of this that was too stuck on yet that were necrotic. At least the purulence had been expressed underneath the area yesterday. DESCRIPTION OF PROCEDURE: He was taken to surgery. General anesthetic. Routine prep and drape. Certainly there had been marked improvement with the debridement yesterday. The residual areas in this 14 cm x 8 cm anterior hernandez complex ulcerated necrotic area were cleaned up. Sterile ointment and sterile dressing applied. The patient tolerated the procedure satisfactorily. It was a major debridement of skin and subcutaneous tissue, no bone.
[2020-10-02] MEDS: ZOCOR 20MG PO SCH (22:12)
[2020-10-02] MEDS: Zofran 4 MG/2 ML VIAL IV PRN (23:45)
[2020-10-03] MEDS: Zosyn 3.375 GM Vial 3.375 GM in Sodium Chloride 100ML MINI-BAG PLUS 100 ML IV SCH ×5 (00:18→23:51)
[2020-10-03] MEDS: NORCO 5/325 MG PO PRN ×4 (02:46→22:06)
[2020-10-03 05:04] LABS: Absolute Neutrophil Ct (ANC) 5.61 (1.4-6.9); BASOPHIL % 0.4 % (0.0-0.4); Basophil (Absolute #) 0.03 (0-0.4); Eosinophil % 2.6 % (0.00-5.0); Eosinophil (Absolute #) 0.22 (0-0.5); Hematocrit 40.3 % (42-50); Hemoglobin 12.3 gm/dl (12.5-18.0); Lymphocyte (Absolute #) 1.39 (1.0-4.6); Lymphocytes % 16.5 % (24.0-44.0); Mean Cell Volume 88.6 fl (78-100); Mean Corpuscular Hgb Concent. 30.5 g/dl (32-36); Mean Platelet Volume 8.8 fl (7.5-11.0); Monocyte (Absolute #) 1.15 (0.0-1.3); Monocytes % 13.7 % (0.0-12.0); Neutrophil % 66.8 % (36.0-66.0); Platelet Count 407 K/mm3 (150-450); Red Blood Count 4.55 M/mm3 (4.1-5.6); Red Cell Distribution Width 15.2 % (11.5-14.0); White Blood Count 8.4 K/mm3 (4.0-10.5)
[2020-10-03 05:27] LABS: ALBUMIN 3.6 g/dL (3.5-5.0); ALKALINE PHOSPHATASE 95 U/L (38-126); ANION GAP 11.8 MEQ/L (5-15); BLOOD UREA NITROGEN 12 mg/dL (9-20); CHLORIDE 103 mmol/L (98-107); Calcium 8.9 mg/dL (8.4-10.2); Carbon Dioxide 28 mmol/L (22-30); Creatinine 1 1.06 mg/dL (0.66-1.25); EST GLOMERULAR FILTRATION RATE > 60.0 ML/MIN; Glucose 135 mg/dL (74-106); Potassium 3.7 mmol/L (3.5-5.1); SGOT/AST 16 U/L (17-59); SGPT/ALT 14 U/L (0-50); SODIUM 140 mmol/L (137-145); Total Protein 7.5 g/dL (6.3-8.2)
[2020-10-03] MEDS: Glynase 3 MG PO SCH ×2 (08:10→16:55)
[2020-10-03] MEDS: Glucophage 500 MG PO SCH ×2 (08:10→16:55)
[2020-10-03 09:09] LABS: INR 1.41 (0.8-3.0)
[2020-10-03] MEDS ORDERED: TROUGH DRUG LEVELS IJ ONE (09:30)
[2020-10-03] MEDS: Zofran 4 MG/2 ML VIAL IV PRN ×2 (09:34→14:47)
[2020-10-03] MEDS: MORPHINE SULFATE 2 MG INJ IV PRN (09:34)
[2020-10-03] MEDS: Protonix 40MG Tablet PO SCH (10:08)
[2020-10-03] MEDS: Lasix 40 MG PO SCH (12:31)
[2020-10-03] MEDS: Klor Con 10 MEQ PO SCH ×2 (12:32→22:06)
[2020-10-03] MEDS: COREG 12.5 MG PO SCH ×2 (12:32→22:06)
[2020-10-03] MEDS: Lopressor 25MG Tab PO SCH ×2 (12:32→22:06)
[2020-10-03] MEDS: Colace 100 MG PO SCH ×2 (12:32→22:06)
[2020-10-03] MEDS: NORVASC 5 MG PO SCH (12:32)
[2020-10-03] MEDS: PATIENT OWN MEDICATION PO SCH (12:33)
--- NOTE | 2020-10-03 12:43 | XRAY ---
Indication: Long-term IV access and therapy for right leg infection. Informed consent obtained. Patient was placed on the fluoroscopic table in a supine position. Initial sonographic imaging of the right upper extremity was performed for localization of patent veins. The right upper extremity was then prepped and draped in sterile fashion. Tourniquet applied. 1% lidocaine plain used for local anesthesia. Using ultrasound guidance and a micropuncture needle, a basilic vein above the elbow was successfully percutaneously cannulized. A floppy tip 0.018 guidewire inserted. Tourniquet released. Needle was exchanged for a 5 [place] dilator peel-away sheath catheter. Ultimately a 5 [place] double-lumen PICC line was inserted over a longer 0.018 guidewire with the tip positioned in the distal SVC using fluoroscopic guidance. Guidewire removed. Both ports flushed with heparinized saline. Catheter was secured. Postoperative instructions and orders given. Patient discharged in good condition. Impression: Technically successful right upper extremity PICC line placement using ultrasound and fluoroscopic guidance. No immediate complications. Approximately 1 cc blood loss. Approximately 0.3 minute of fluoroscopy used. Catheter length is 45 cm.
--- NOTE | 2020-10-03 12:46 | XRAY ---
Indication: Ultrasound guidance for PICC line placement. Initial sonographic imaging of the right upper extremity was performed for localization of patent veins. A patent basilic vein identified above the elbow. Ultrasound guidance was then used for PICC line insertion. Full PICC line insertion is reported separately.
[2020-10-03] MEDS: VANCOMYCIN 1.25 GM/250 ML BAG 1.25 GM/250 ML PIGGYBACK IV SCH ×2 (13:03→22:15)
--- NOTE | 2020-10-03 14:20 | XRAY ---
Indication: custodial placement. Comparison: December 06, 2018. Portable chest less inflated with new cardiomegaly and new small bibasilar effusions concerning for mild/early cardiac decompensation versus fluid overload. New right arm PICC line in good position and new lingula discoid atelectasis/scarring. Bony thorax intact.
[2020-10-03] MEDS: ZOCOR 20MG PO SCH (22:06)
[2020-10-04] MEDS: MORPHINE SULFATE 2 MG INJ IV PRN (00:23)
[2020-10-04] MEDS: NORCO 5/325 MG PO PRN ×4 (05:48→22:50)
[2020-10-04] MEDS: Zosyn 3.375 GM Vial 3.375 GM in Sodium Chloride 100ML MINI-BAG PLUS 100 ML IV SCH ×3 (05:48→17:29)
[2020-10-04] MEDS: Glynase 3 MG PO SCH ×2 (09:58→17:29)
[2020-10-04] MEDS: Glucophage 500 MG PO SCH ×2 (09:58→17:29)
[2020-10-04] MEDS: Klor Con 10 MEQ PO SCH ×2 (10:00→22:50)
[2020-10-04] MEDS: ECOTRIN 81 MG PO SCH (10:00)
[2020-10-04] MEDS: VANCOMYCIN 1.25 GM/250 ML BAG 1.25 GM/250 ML PIGGYBACK IV SCH ×2 (10:00→23:03)
[2020-10-04] MEDS: Colace 100 MG PO SCH ×2 (10:00→22:53)
[2020-10-04] MEDS: Protonix 40MG Tablet PO SCH (10:00)
[2020-10-04] MEDS: COREG 12.5 MG PO SCH ×2 (10:00→22:51)
[2020-10-04] MEDS: Lopressor 25MG Tab PO SCH ×2 (10:01→22:50)
[2020-10-04] MEDS: Lasix 40 MG PO SCH (10:01)
[2020-10-04] MEDS: NORVASC 5 MG PO SCH (10:01)
[2020-10-04] MEDS: ELIQUIS 2.5 MG TABLET PO SCH ×2 (10:01→22:51)
[2020-10-04] MEDS: PATIENT OWN MEDICATION PO SCH (10:02)
[2020-10-04 12:29] LABS: COVID AG -BINAX NOW RAPID TEST NEGATIVE (NEGATIVE)
[2020-10-04] MEDS: ZOCOR 20MG PO SCH (22:51)
[2020-10-04] MEDS ORDERED: VANCOMYCIN 1 GRAM/200 ML BAG 1 GM/200 ML PIGGYBACK IV ONE (23:00)
[2020-10-05] MEDS: Zosyn 3.375 GM Vial 3.375 GM in Sodium Chloride 100ML MINI-BAG PLUS 100 ML IV SCH ×2 (00:06→05:23)
[2020-10-05 07:36] VITALS: BP 144/70; PULSE 75; O2SAT 96
[2020-10-05] MEDS: NORCO 5/325 MG PO PRN (08:14)
[2020-10-05] MEDS: Glucophage 500 MG PO SCH (08:31)
[2020-10-05] MEDS: Glynase 3 MG PO SCH (08:31)
[2020-10-05] MEDS: VANCOMYCIN 1.25 GM/250 ML BAG 1.25 GM/250 ML PIGGYBACK IV SCH (08:56)
[2020-10-05] MEDS: Klor Con 10 MEQ PO SCH (08:58)
[2020-10-05] MEDS: Colace 100 MG PO SCH (08:59)
[2020-10-05] MEDS: Protonix 40MG Tablet PO SCH (08:59)
[2020-10-05] MEDS: NORVASC 5 MG PO SCH (08:59)
[2020-10-05] MEDS: ECOTRIN 81 MG PO SCH (08:59)
[2020-10-05] MEDS: COREG 12.5 MG PO SCH (08:59)
[2020-10-05] MEDS: ELIQUIS 2.5 MG TABLET PO SCH (08:59)
[2020-10-05] MEDS: Lasix 40 MG PO SCH (08:59)
[2020-10-05] MEDS: Lopressor 25MG Tab PO SCH (08:59)
[2020-10-05] MEDS: PATIENT OWN MEDICATION PO SCH (09:00)
== END 2020-10-05 10:55 | DRG 603 ==
LOC: ED 12:11 → MED SURG 14:09
PROVIDERS: ADMIT Family Medicine; ATTEND Family Medicine
PROC: 02HV33Z Insertion of Infusion Device into Superior Vena Cava, Percutaneous Approach (ICD-10-PCS; principal; 2020-10-03)
DX: L08.9 Local infection of the skin and subcutaneous tissue, unspecified (principal); I69.851 Hemiplegia and hemiparesis following other cerebrovascular disease affecting right dominant side; E11.65 Type 2 diabetes mellitus with hyperglycemia; Z79.899 Other long term (current) drug therapy; Z79.01 Long term (current) use of anticoagulants; I10 Essential (primary) hypertension; K59.00 Constipation, unspecified
CPT/HCPCS: 36000; 36415; 36573; 71045; 73590; 76937; 77001; 80053; 80202; 80307; 82947; 83605; 84145; 85025; 85027; 85610; 87040; 87070; 87077; 87186; 90471; 90715; 93005; 93925; 94760; 96365; 99000; 99285; C1769; J1642; J1885; J2250; J2270; J2405; J2543; J2704; J3010; A9270-GY; J3370

== ENCOUNTER 2021-08-11 20:02 | Inpatient (IN) | payer MEDICARE, BC ==
[2021-08-11] MEDS ORDERED: TYLENOL 325 MG PO ONE (20:16)
[2021-08-11] MEDS ORDERED: TYLENOL 325 MG ONE (20:22)
[2021-08-11 21:01] LABS: Absolute Neutrophil Ct (ANC) 11.03 (1.4-6.9); Basophil (Absolute #) 0.03 (0-0.4); Eosinophil % 0.1 % (0.00-5.0); Eosinophil (Absolute #) 0.01 (0-0.5); Hematocrit 41.4 % (42-50); Hemoglobin 13.5 gm/dl (12.5-18.0); Lymphocyte (Absolute #) 0.85 (1.0-4.6); Lymphocytes % 6.5 % (24.0-44.0); Mean Cell Volume 91.4 fl (78-100); Mean Corpuscular Hemoglobin 29.8 pg (26-32); Mean Corpuscular Hgb Concent. 32.6 g/dl (32-36); Mean Platelet Volume 9.9 fl (7.5-11.0); Monocyte (Absolute #) 1.14 (0.0-1.3); Monocytes % 8.7 % (0.0-12.0); Neutrophil % 84.5 % (36.0-66.0); Platelet Count 212 K/mm3 (150-450); Red Blood Count 4.53 M/mm3 (4.1-5.6); Red Cell Distribution Width 15.3 % (11.5-14.0); White Blood Count 13.1 K/mm3 (4.0-10.5)
[2021-08-11 21:10] LABS: ALBUMIN 4.1 g/dL (3.5-5.0); ANION GAP 14.5 MEQ/L (5-15); BILIRUBIN,TOTAL 0.8 mg/dL (0.2-1.3); Calcium 9.3 mg/dL (8.4-10.2); Creatinine 1 1.54 mg/dL (0.66-1.25); EST GLOMERULAR FILTRATION RATE 48.7 ML/MIN; MAGNESIUM 1.8 mg/dL (1.6-2.3); Potassium 4.1 mmol/L (3.5-5.1); Total Protein 7.2 g/dL (6.3-8.2)
[2021-08-11 22:06] LABS: Appearance CLEAR (CLEAR); Bilirubin NEGATIVE (NEGATIVE); Blood MODERATE Ery/ul (0-5); Glucose NEGATIVE (NEGATIVE); Ketones NEGATIVE (NEGATIVE); Leukocyte Esterase NEGATIVE (NEGATIVE); Nitrite NEGATIVE (NEGATIVE); Protein,Urine Dip 30 (Negative); RBC 51-100 /HPF (0-2); Specific Gravity 1.013 (1.005-1.025); Urobilinogen NEGATIVE mg/dL (0-1); WBC 0-2 /HPF (0-5)
--- NOTE | 2021-08-11 23:05 | ERPHSYRPT ---
- History of Present Illness Time Seen by Provider: 08/11/21 20:13 Source: patient, EMS Exam Limitations: no limitations Patient Subjective Stated Complaint: Per EMS pt was exhibiting confusion and had complaints of lower leg pain. patient denies pain, is confused, and not aware of why he is here. Triage Nursing Assessment: EMS reported that they were called to the patient's residence for complaints of intermittent confusion and bilateral leg pain. EMS reported that upon there arrival, the patient was found to be disheveled and sitting in urine and feces. The patient lives at home with his daughter. EMS reported significant odor and weeping sores on the bilateral lower extremities. The patient presented alert to name and date of . he is not alert to year, month, day, or location. He was able to state that he was in a hospital. how ever, could not recall the name of the town/city he was in. The patient denied any complaints at this time. he denied lower extremity pain, chest pain, shortness of breath, nausea/vomiting/diarrhea. He denied knowing why he was brought to the ED. Pupils 3mm bilateral. oral mucosa pale/dry. Neck supple without JVD/lymphadenopathy. Symmetrical chest expansion. heart tones S1/S2 RRR without extra sounds. Lungs vesicular with fine crackles in the posterior lower lobes. Abdomen obese non-distended. Bowel sounds present in all quadrants. Peripheral pulses +3 bilateral. Lower extremities with significant +3 edema and mulitple weeping sores. Skin of the lower extremities with significant warmth, erythema, and chronic venous changes. Physician History: 65 years old male with history of hypertension, hyperlipidemia, on Eliquis for probable stroke, diabetes mellitus, congestive heart failure, chronic lower extremity swelling/lymphedema recently finished course of Bactrim is brought in the ER by EMS with chief complaint of altered mental status and leg pain. Patient is awake alert but not oriented and denies having pain anywhere. He denies any chest pain palpitations or shortness of breath. He denies any leg pain but does have ulceration on left leg with yellowish-green discharge and some blisters and erythema of right leg. Patient is not a good historian and also history is limited secondary to his altered mentation. Moving all 4 extremities. Allergies/Adverse Reactions: No Known Drug Allergies Allergy (Verified 08/11/21 20:07) Home Medications: Amlodipine Besylate [Norvasc] 10 mg PO DAILY 08/15/20 [History] Apixaban [Eliquis] 5 mg PO BID 09/29/20 [History] Aspirin 81 gm Chew [Baby Aspirin 81 mg Chew] 81 mg PO DAILY 09/29/20 [History] Carvedilol 12.5 mg [Coreg 12.5 mg] 12.5 mg PO BID 09/29/20 [History] Furosemide 40 mg [Lasix 40 MG] 1 tablet PO DAILY 09/29/20 [History] Glyburide Micronized 3 mg [Glynase 3 MG] 3 mg PO BID 09/29/20 [History] Potassium Chloride 10 Meq Tab* [Klor Con 10 MEQ] 8 meq PO BID 09/29/20 [History] Rosuvastatin Calcium 40 mg PO DAILY 09/29/20 [History] Hx Tetanus, Diphtheria Vaccination/Date Given: No Hx Influenza Vaccination/Date Given: No Hx Pneumococcal Vaccination/Date Given: No Travel Risk - International Travel Have you traveled outside of the country in past 3 weeks: No - Coronavirus Screening Are you exhibiting any of the following symptoms?: No Close contact with a COVID-19 positive Pt in past 14-21 Days: No - Vaccine Status Have you recieved a Covid-19 vaccination: No - Review of Systems All Other Systems: Unable due to condition - Past Medical History Pertinent Past Medical History: Yes Neurological History: Stroke, Other ENT History: No Pertinent History Cardiac History: Hypertension, Other Respiratory History: No Pertinent History Endocrine Medical History: Diabetes Type II Musculoskeletal History: Arthritis GI Medical History: No Pertinent History Psycho-Social History: No Pertinent History Male Reproductive Disorders: No Pertinent History Other Medical History: enlarged heart, head injuries from accident 25 years ago. - Past Surgical History Past Surgical History: Yes - Social History Smoking Status: Never smoker Exposure to second hand smoke: Yes Drug Use: none Patient Lives Alone: No - Nursing Vital Signs Nursing Vital Signs: Initial Vital Signs Temperature 100.7 F 08/11/21 20:06 Pulse Rate 108 H 08/11/21 20:06 Respiratory Rate 24 08/11/21 20:06 Blood Pressure 171/86 08/11/21 20:06 O2 Sat by Pulse Oximetry 97 08/11/21 20:06 Pain Scale Pain Intensity 0 - Physical Exam General Appearance: no apparent distress, alert Eye Exam: PERRL/EOMI, eyes nml inspection Ears, Nose, Throat Exam: normal ENT inspection, TMs normal, pharynx normal, mois t mucous membranes Neck Exam: normal inspection, supple, full range of motion Respiratory Exam: normal breath sounds, lungs clear Cardiovascular Exam: regular rate/rhythm, normal heart sounds Gastrointestinal/Abdomen Exam: soft, normal bowel sounds, No tenderness Back Exam: normal inspection Extremity Exam: other (Bilateral lower extremity swelling with erythema of right lower with mild increased temperature. No tenderness. Blisters left leg and a wound on the anterior lower leg with yellow-green discharge.) Neurologic Exam: alert, cooperative, radio division officer II-XII nml as tested, No oriented x 3 Skin Exam: abrasion SpO2 Interpretation: normal SpO2: 96 O2 Delivery: Room Air - Course EKG Interpreted by Me: RATE ([id number]), Sinus Rhythm, NORMAL AXIS, NORMAL INTERVALS, Non-specific ST Changes Ordered Tests: Active Orders 24 hr Category Date Time Status EKG-ER Only STAT Care 08/11/21 22:48 Active IV Insertion STAT Care 08/11/21 20:16 Active CHEST 1 VIEW (PORTABLE) Stat Exams 08/11/21 20:16 Taken HEAD WITHOUT CONTRAST [CT] Stat Exams 08/11/21 20:17 Taken BLOOD CULTURE Stat Lab 08/11/21 20:48 Received CBC W DIFF Stat Lab 08/11/21 20:48 Completed CMP Stat Lab 08/11/21 20:48 Completed CULTURE,URINE Stat Lab 08/11/21 21:27 Received Lactic Acid Stat Lab 08/11/21 20:34 Completed MAGNESIUM Stat Lab 08/11/21 20:48 Completed NT PRO BNP Stat Lab 08/11/21 20:48 Completed TROPONIN Q3H Lab 08/11/21 20:48 Completed TROPONIN Q3H Lab 08/11/21 23:23 Received TROPONIN Q3H Lab 08/12/21 02:30 Ordered TROPONIN Q3H Lab 08/12/21 05:30 Ordered TROPONIN Q3H Lab 08/12/21 08:30 Ordered UA W/RFX UR CULTURE Stat Lab 08/11/21 21:27 Completed Transfer Order Routine Transfer 08/11/21 Ordered Medication Summary Generic Name Dose Route Start Last Admin Trade Name Freq PRN Reason Stop Dose Admin Sodium Chloride 1,000 mls @ 50 mls/hr 08/11/21 23:15 08/11/21 23:24 Sodium Chloride 0.9% 1000 Ml IV 09/10/21 23:14 50 mls/hr .Q20H ARLENE Administration Clindamycin HCl/Dextrose 600 mg in 50 mls @ 100 mls/hr 08/11/21 23:09 Clindamycin-D5w 600 Mg/50 Ml IV 08/11/21 23:38 STAT STA Piperacillin Sod/Tazobactam 100 mls @ 200 mls/hr 08/11/21 23:09 08/11/21 23:24 Sod 3.375 gm/ Sodium Chloride IV 08/11/21 23:38 200 mls/hr STAT ONE Administration Discontinued Medications Generic Name Dose Route Start Last Admin Trade Name Bambi PRN Reason Stop Dose Admin Acetaminophen 975 mg 08/11/21 20:16 08/11/21 20:22 Acetaminophen 325 Mg Tablet PO 08/11/21 20:17 975 mg STAT ONE Administration Acetaminophen Confirm 08/11/21 20:22 Acetaminophen 325 Mg Tablet Administered 08/11/21 20:23 Dose 975 mg .ROUTE .STK-MED ONE Clindamycin HCl/Dextrose Confirm 08/11/21 23:19 Clindamycin-D5w 600 Mg/50 Ml Administered 08/11/21 23:20 Dose 600 mg in 50 mls @ ud IV .STK-MED ONE Sodium Chloride Confirm 08/11/21 23:20 Sodium Chloride 100ml Mini-Bag Plus Administered 08/11/21 23:21 Dose 100 mls @ ud IV .STK-MED ONE Piperacillin Sod/Tazobactam Sod Confirm 08/11/21 23:19 Piperacillin/Tazobactam Sodium 3.375 Gm Vial Administered 08/11/21 23:20 Dose 3.375 gm IV .STK-MED ONE Lab/Rad Data: Laboratory Result Diagrams 08/11/21 20:48 08/11/21 20:48 Laboratory Results 08/11/21 08/11/21 08/11/21 Range/Units 21:27 20:48 20:48 WBC (4.0-10.5) K/mm3 RBC (4.1-5.6) M/mm3 Hgb (12.5-18.0) gm/dl Hct (42-50) % MCV (78-100) fl MCH (26-32) pg MCHC (32-36) g/dl RDW (11.5-14.0) % Plt Count (150-450) K/mm3 MPV (7.5-11.0) fl Gran % (36.0-66.0) % Eos # (Auto) (0-0.5) Absolute Lymphs (auto) (1.0-4.6) Absolute Monos (auto) (0.0-1.3) Lymphocytes % (24.0-44.0) % Monocytes % (0.0-12.0) % Eosinophils % (0.00-5.0) % Basophils % (0.0-0.4) % Absolute Granulocytes (1.4-6.9) Basophils # (0-0.4) Sodium 137 (137-145) mmol/L Potassium 4.1 (3.5-5.1) mmol/L Chloride 98 (98-107) mmol/L Carbon Dioxide 28 (22-30) mmol/L Anion Gap 14.5 (5-15) MEQ/L BUN 16 (9-20) mg/dL Creatinine 1.54 H (0.66-1.25) mg/dL Estimated GFR 48.7 ML/MIN Glucose 145 H (74-106) mg/dL Lactic Acid (0.4-2.0) Calcium 9.3 (8.4-10.2) mg/dL Magnesium 1.8 (1.6-2.3) mg/dL Total Bilirubin 0.80 (0.2-1.3) mg/dL AST 27 (17-59) U/L ALT 19 (0-50) U/L Alkaline Phosphatase 67 (38-126) U/L Troponin I 0.062 H* (0.000-0.034) ng/mL NT-Pro-B Natriuret Pep 613 (0-900) pg/mL Serum Total Protein 7.2 (6.3-8.2) g/dL Albumin 4.1 (3.5-5.0) g/dL Urine Color YELLOW (YELLOW) Urine Appearance CLEAR (CLEAR) Urine pH 7.0 (5-6) Ur Specific [place] 1.013 (1.005-1.025) Urine Protein 30 (Negative) Urine Ketones NEGATIVE (NEGATIVE) Urine Blood MODERATE (0-5) Nick/ul Urine Nitrite NEGATIVE (NEGATIVE) Urine Bilirubin NEGATIVE (NEGATIVE) Urine Urobilinogen NEGATIVE (0-1) mg/dL Ur Leukocyte Esterase NEGATIVE (NEGATIVE) Urine WBC (Auto) 0-2 (0-5) /HPF Urine RBC (Auto) 51-100 (0-2) /HPF U Epithel Cells (Auto) NONE (FEW) /HPF Urine Bacteria (Auto) NONE (NEGATIVE) /HPF Urine Culture Reflexed YES (NO) Urine Glucose NEGATIVE (NEGATIVE) mg/dL 08/11/21 08/11/21 Range/Units 20:48 20:34 WBC 13.1 H (4.0-10.5) K/mm3 RBC 4.53 (4.1-5.6) M/mm3 Hgb 13.5 (12.5-18.0) gm/dl Hct 41.4 L (42-50) % MCV 91.4 (78-100) fl MCH 29.8 (26-32) pg MCHC 32.6 (32-36) g/dl RDW 15.3 H (11.5-14.0) % Plt Count 212 (150-450) K/mm3 MPV 9.9 (7.5-11.0) fl Gran % 84.5 H (36.0-66.0) % Eos # (Auto) 0.01 (0-0.5) Absolute Lymphs (auto) 0.85 L (1.0-4.6) Absolute Monos (auto) 1.14 (0.0-1.3) Lymphocytes % 6.5 L (24.0-44.0) % Monocytes % 8.7 (0.0-12.0) % Eosinophils % 0.1 (0.00-5.0) % Basophils % 0.2 (0.0-0.4) % Absolute Granulocytes 11.03 H (1.4-6.9) Basophils # 0.03 (0-0.4) Sodium (137-145) mmol/L Potassium (3.5-5.1) mmol/L Chloride (98-107) mmol/L Carbon Dioxide (22-30) mmol/L Anion Gap (5-15) MEQ/L BUN (9-20) mg/dL Creatinine (0.66-1.25) mg/dL Estimated GFR ML/MIN Glucose (74-106) mg/dL Lactic Acid 1.7 (0.4-2.0) Calcium (8.4-10.2) mg/dL Magnesium (1.6-2.3) mg/dL Total Bilirubin (0.2-1.3) mg/dL AST (17-59) U/L ALT (0-50) U/L Alkaline Phosphatase (38-126) U/L Troponin I (0.000-0.034) ng/mL NT-Pro-B Natriuret Pep (0-900) pg/mL Serum Total Protein (6.3-8.2) g/dL Albumin (3.5-5.0) g/dL Urine Color (YELLOW) Urine Appearance (CLEAR) Urine pH (5-6) Ur Specific [place] (1.005-1.025) Urine Protein (Negative) Urine Ketones (NEGATIVE) Urine Blood (0-5) Nick/ul Urine Nitrite (NEGATIVE) Urine Bilirubin (NEGATIVE) Urine Urobilinogen (0-1) mg/dL Ur Leukocyte Esterase (NEGATIVE) Urine WBC (Auto) (0-5) /HPF Urine RBC (Auto) (0-2) /HPF U Epithel Cells (Auto) (FEW) /HPF Urine Bacteria (Auto) (NEGATIVE) /HPF Urine Culture Reflexed (NO) Urine Glucose (NEGATIVE) mg/dL - Progress Progress: unchanged Progress Note: 08/11/21 23:03 65 years old is evaluated for altered mental status. Patient is moving all 4 extremities, awake but not fully oriented and cannot tell the exact reason for coming to the hospital. CT head is obtained because of him being on anticoagulation and is negative. EKG normal sinus rhythm without any ST elevation but has initial troponin of 0.062 and had a fever of 100.7, given Tylenol. Chest x-ray no acute findings. Normal white count, mild worsening of renal function from baseline 1-1.5 creatinine. Will give gentle hydration. No UTI. Started him on antibiotics for cellulitis. Discussed with and patient is being admitted for observation. Discussed with : Heidi Will see patient in: hospital (observation) Counseled pt/family regarding: lab results, diagnosis, rad results - Departure Departure Disposition: Observation Clinical Impression: Bilateral lower leg cellulitis, Elevated troponin, Altered mental status Condition: Stable Critical Care Time: No Referrals: BENITO,SHERLYN F [Primary Care Provider] - Follow up/PCP as directed
[2021-08-11] MEDS ORDERED: CLINDAMYCIN-D5W 600 MG/50 ML*** 600 MG/50 ML BAG IV STA (23:09)
[2021-08-11] MEDS ORDERED: Zosyn 3.375 GM Vial 3.375 GM in Sodium Chloride 100ML MINI-BAG PLUS 100 ML IV ONE (23:09)
[2021-08-11] MEDS ORDERED: CLINDAMYCIN-D5W 600 MG/50 ML*** 600 MG/50 ML BAG IV ONE (23:19)
[2021-08-11] MEDS ORDERED: Zosyn 3.375 GM Vial IV ONE (23:19)
[2021-08-11] MEDS ORDERED: Sodium Chloride 100ML MINI-BAG PLUS 100 ML IV ONE (23:20)
[2021-08-11] MEDS: Sodium Chloride 0.9% 1000 ML 1,000 ML IV SCH (23:24)
[2021-08-11] MEDS ORDERED: Klor Con 10 MEQ PO ONE ×2 (23:42→23:45)
[2021-08-11] MEDS ORDERED: COREG 12.5 MG ONE (23:48)
[2021-08-11] MEDS ORDERED: ELIQUIS 2.5 MG TABLET ONE (23:49)
[2021-08-11] MEDS ORDERED: Micronase 5 MG ONE (23:49)
[2021-08-12 00:04] LABS: INFLUENZA A NEGATIVE (NEGATIVE); INFLUENZA B NEGATIVE (NEGATIVE); RESPIRATORY SYNCTIAL VIRUS NEGATIVE (Negative); SARS-CoV-2 Xpert Express NEGATIVE (NEGATIVE)
[2021-08-12] MEDS ORDERED: HUMALOG SQ PRN (00:32)
[2021-08-12] MEDS ORDERED: DUONEB 0.5-3 MG/3 ml Neb IH PRN (00:32)
[2021-08-12] MEDS: Zosyn 3.375 GM Vial 3.375 GM in Sodium Chloride 100ML MINI-BAG PLUS 100 ML IV SCH ×4 (00:51→18:16)
[2021-08-12] MEDS ORDERED: Zosyn 3.375 GM Vial IV ONE (02:04)
[2021-08-12] MEDS ORDERED: Sodium Chloride 100ML MINI-BAG PLUS 100 ML IV ONE (02:05)
[2021-08-12] MEDS: TYLENOL 325 MG PO PRN ×2 (02:42→21:43)
[2021-08-12] MEDS: CLINDAMYCIN-D5W 600 MG/50 ML*** 600 MG/50 ML BAG IV SCH ×3 (05:53→21:35)
[2021-08-12 06:09] LABS: Absolute Neutrophil Ct (ANC) 7.64 (1.4-6.9); Basophil (Absolute #) 0.01 (0-0.4); Eosinophil % 0.1 % (0.00-5.0); Eosinophil (Absolute #) 0.01 (0-0.5); Hematocrit 37.7 % (42-50); Hemoglobin 11.9 gm/dl (12.5-18.0); Lymphocyte (Absolute #) 0.87 (1.0-4.6); Lymphocytes % 9.1 % (24.0-44.0); Mean Cell Volume 92.2 fl (78-100); Mean Corpuscular Hemoglobin 29.1 pg (26-32); Mean Corpuscular Hgb Concent. 31.6 g/dl (32-36); Mean Platelet Volume 9.7 fl (7.5-11.0); Monocyte (Absolute #) 1.04 (0.0-1.3); Monocytes % 10.9 % (0.0-12.0); Neutrophil % 79.8 % (36.0-66.0); Platelet Count 168 K/mm3 (150-450); Red Blood Count 4.09 M/mm3 (4.1-5.6); Red Cell Distribution Width 15.4 % (11.5-14.0); White Blood Count 9.6 K/mm3 (4.0-10.5)
[2021-08-12 06:34] LABS: ALBUMIN 3.4 g/dL (3.5-5.0); ANION GAP 11.2 MEQ/L (5-15); BILIRUBIN,TOTAL 0.8 mg/dL (0.2-1.3); Calcium 8.6 mg/dL (8.4-10.2); Creatinine 1 1.5 mg/dL (0.66-1.25); EST GLOMERULAR FILTRATION RATE 50.2 ML/MIN; Potassium 3.5 mmol/L (3.5-5.1); Total Protein 6.5 g/dL (6.3-8.2)
--- NOTE | 2021-08-12 08:23 | PCM.HP ---
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 Assistance ROUTINE Activity 08/12/21 00:32 Active Code Status Order ROUTINE Care 08/12/21 00:32 Active EKG-ER Only STAT Care 08/11/21 22:48 Completed Fall Protocol Q1H Care 08/12/21 00:32 Active IV Care Q6H Care 08/12/21 00:32 Active IV Insertion STAT Care 08/11/21 20:16 Completed Neuro Checks Q2H Care 08/12/21 00:32 Active POCT Glucose Check ACHS Care 08/12/21 00:[address] in Observation ROUTINE Care 08/12/21 00:32 Active Dejah Long ROUTINE Care 08/12/21 00:32 Active Weight,Daily 0600 Care 08/12/21 00:32 Active Teacher Education Director/Discharge Plan ROUTINE Cons 08/12/21 01:22 Active Consistent Carbohydrate Diet 1800 Calorie Diet 08/12/21 Breakfast Active Nutritional Admission Screen ONCE Diet 08/12/21 01:22 Active CHEST 1 VIEW (PORTABLE) Stat Exams 08/11/21 20:16 Taken HEAD WITHOUT CONTRAST [CT] Stat Exams 08/11/21 20:17 Taken BLOOD CULTURE Stat Lab 08/11/21 20:48 Received CBC W DIFF AM.LAB Lab 08/12/21 05:35 Completed CBC W DIFF Stat Lab 08/11/21 20:48 Completed CMP AM.LAB Lab 08/12/21 05:35 Completed CMP Stat Lab 08/11/21 20:48 Completed CULTURE,URINE Stat Lab 08/11/21 21:27 Received Lactic Acid Stat Lab 08/11/21 20:34 Completed MAGNESIUM Stat Lab 08/11/21 20:48 Completed NT PRO BNP Stat Lab 08/11/21 20:48 Completed POCT GLUCOSE Stat Lab 08/12/21 04:40 Completed POCT GLUCOSE Stat Lab 08/12/21 07:55 Completed TROPONIN Q3H Lab 08/11/21 20:48 Completed TROPONIN Q3H Lab 08/11/21 23:23 Completed TROPONIN Q3H Lab 08/12/21 02:37 Completed TROPONIN Q3H Lab 08/12/21 05:35 Completed TROPONIN Q3H Lab 08/12/21 08:22 Received UA W/RFX UR CULTURE Stat Lab 08/11/21 21:27 Completed Acetaminophen 325 mg [Tylenol 325 mg] Med 08/12/21 00:32 Active 650 mg PO Q4H PRN PRN Acetaminophen 325 mg [Tylenol 325 mg] Med 08/11/21 20:22 Discontinued 975 mg .ROUTE .STK-MED ONE Acetaminophen 325 mg [Tylenol 325 mg] Med 08/11/21 20:16 Discontinued 975 mg PO STAT ONE Albuterol/Ipratropium 3ml Neb* [DUONEB 0.5-3 MG/3 ml Med 08/12/21 00:32 Discontinued Neb] 3 ml IH Q4HPRN PRN Apixaban [Eliquis 2.5 mg Tablet] Med 08/11/21 23:49 Discontinued 5 mg .ROUTE .STK-MED ONE Apixaban [Eliquis 2.5 mg Tablet] Med 08/12/21 23:41 Discontinued 5 mg PO STAT ONE Carvedilol 12.5 mg [Coreg 12.5 mg] Med 08/11/21 23:48 Discontinued 12.5 mg .ROUTE .STK-MED ONE Carvedilol 12.5 mg [Coreg 12.5 mg] Med 08/12/21 23:40 Discontinued 12.5 mg PO STAT ONE Clindamycin 600 mg/D5w 50 ml [Clindamycin-D5w 600 mg/ Med 08/12/21 06:00 Active 50 ml] 600 mg in 50 ml IV Q8HT Clindamycin 600 mg/D5w 50 ml [Clindamycin-D5w 600 mg/ Med 08/11/21 23:09 Discontinued 50 ml] 600 mg in 50 ml IV STAT Clindamycin 600 mg/D5w 50 ml [Clindamycin-D5w 600 mg/ Med 08/11/21 23:19 Discontinued 50 ml] 600 mg in 50 ml IV UD Glyburide 5 mg [Micronase 5 MG] Med 08/11/21 23:49 Discontinued 5 mg .ROUTE .STK-MED ONE Insulin Lispro [Humalog] Med 08/12/21 00:32 Active See Dose Instructions SQ UD PRN NaCl 0.9% 100 ml Mini-Bag Plus [Sodium Chloride 100ML Med 08/11/21 23:20 Discontinued MINI-BAG PLUS] 100 ml IV UD NaCl 0.9% 100 ml Mini-Bag Plus [Sodium Chloride 100ML Med 08/12/21 02:05 Discontinued MINI-BAG PLUS] 100 ml IV UD NaCl 0.9% 1000 ml [Sodium Chloride 0.9% 1000 ML] 1,000 Med 08/11/21 23:15 Active ml IV 50 mls/hr Pantoprazole 40 mg [Protonix 40 mg IV] Med 08/12/21 10:00 Active 40 mg IV Q24H10 Piperacillin/Tazobactam 3.375G [Zosyn 3.375 GM Vial] Med 08/11/21 23:19 Discontinued 3.375 gm IV .STK-MED ONE Piperacillin/Tazobactam 3.375G [Zosyn 3.375 GM Vial] Med 08/12/21 02:04 Discontinued 3.375 gm IV .STK-MED ONE Piperacillin/Tazobactam 3.375G [Zosyn 3.375 GM Vial] 3. Med 08/12/21 00:32 Active 375 gm NaCl 0.9% 100 ml Mini-Bag Plus [Sodium Chloride 100ML MINI-BAG PLUS] 100 ml IV Q6HT Piperacillin/Tazobactam 3.375G [Zosyn 3.375 GM Vial] 3. Med 08/11/21 23:09 Discontinued 375 gm NaCl 0.9% 100 ml Mini-Bag Plus [Sodium Chloride 100ML MINI-BAG PLUS] 100 ml IV STAT Potassium Chloride 10 Meq Tab* [Klor Con 10 MEQ] Med 08/11/21 23:45 Discontinued 30 meq PO .STK-MED ONE Potassium Chloride 10 Meq Tab* [Klor Con 10 MEQ] Med 08/11/21 23:42 Discontinued 30 meq PO STAT ONE OT Screen per Nursing Assess ONCE OT 08/12/21 01:22 Active PT Screen per Nursing Assess ONCE PT 08/12/21 01:22 Active Pulse Oximetry .spot check RT 08/12/21 03:37 Completed Respiratory Therapy Assessment DAILY RT 08/12/21 03:37 Completed Code(s): L03.116 - CELLULITIS OF LEFT LOWER LIMB; L03.115 - CELLULITIS OF RIGHT LOWER LIMB (3) Elevated troponin Current Visit: Yes Status: Acute Code(s): R77.8 - OTHER SPECIFIED ABNORMALITIES OF PLASMA PROTEINS (4) Diabetes Current Visit: No Status: Acute Code(s): E11.9 - TYPE 2 DIABETES MELLITUS WITHOUT COMPLICATIONS (5) Hypertension Current Visit: No Status: Acute Code(s): I10 - ESSENTIAL (PRIMARY) HYPERTENSION (6) Ischemic cerebrovascular accident (CVA) Current Visit: No Status: Acute Code(s): I63.9 - CEREBRAL INFARCTION, UNSPECIFIED
--- NOTE | 2021-08-12 08:32 | XRAY ---
Indication: Acute mental status change. Comparison: October 03, 2020. Portable chest better inflated and clear. Heart not enlarged for AP portable technique. Bony thorax intact again with mild degenerative changes. No new/acute findings. Comment: Preliminary interpretation made by [facility]. No critical discrepancy.
--- NOTE | 2021-08-12 08:36 | XRAY ---
Indication: Acute mental status change. Multiple contiguous axial images obtained through the head without contrast. Comparison: August 15, 2020. Again age-appropriate global atrophy, mild periventricular degenerative microvascular ischemia bilaterally, , old left parietal infarct near the vertex, and old bilateral basal ganglia lacunar infarcts. No acute intracranial hemorrhage, abnormal extra-axial fluid collection, or mass effect. Fourth ventricle is midline without hydrocephalus. Bony calvarium intact. Stable right maxillary sinus polyp/retention cyst. Remaining visualized paranasal sinuses and mastoid air cells are clear. Impression: 1. Continued aging brain including atrophy and degenerative micro-ischemia. 2. Bilateral basal ganglia remote lacunar infarcts and small left parietal infarct. 3. No acute intracranial abnormalities. 4. Incidental right maxillary sinus polyp/retention cyst. Comment: Preliminary interpretation made by [facility]. No critical discrepancy.
[2021-08-12] MEDS ORDERED: NON-FORMULARY ITEM (Ondansetron Hcl [Zofran***] 4 MG Tablet) PO PRN (09:33)
[2021-08-12] MEDS: Protonix 40MG Tablet PO SCH (09:41)
[2021-08-12] MEDS ORDERED: ZOFRAN ODT 4 MG PO PRN (09:44)
[2021-08-12] MEDS ORDERED: NON-FORMULARY ITEM (Apixaban [Eliquis] 5 MG Tablet) PO SCH (10:00)
[2021-08-12] MEDS ORDERED: BABY ASPIRIN 81 MG CHEW PO SCH (10:00)
[2021-08-12] MEDS ORDERED: NON-FORMULARY ITEM (Rosuvastatin Calcium [Rosuvastatin Calcium] 40 MG Tablet) PO SCH (10:00)
[2021-08-12] MEDS ORDERED: NON-FORMULARY ITEM (Amlodipine Besylate [Norvasc] 10 MG Tablet) PO SCH (10:00)
[2021-08-12] MEDS ORDERED: PROTONIX 40 MG IV IV SCH (10:00)
[2021-08-12] MEDS: ZOCOR 20MG PO SCH (11:24)
[2021-08-12] MEDS: ECOTRIN 81 MG PO SCH (11:24)
[2021-08-12] MEDS: ELIQUIS 2.5 MG TABLET PO SCH ×2 (11:25→21:36)
[2021-08-12] MEDS: Lasix 40 MG PO SCH (11:25)
[2021-08-12] MEDS: NORVASC 5 MG PO SCH (11:25)
[2021-08-12] MEDS: Klor Con 10 MEQ PO SCH ×2 (11:25→21:36)
[2021-08-12] MEDS: FEOSOL 325 MG PO SCH (11:25)
[2021-08-12] MEDS: COREG 12.5 MG PO SCH ×2 (11:25→21:37)
[2021-08-12] MEDS: Glynase 3 MG PO SCH ×2 (11:26→21:35)
[2021-08-12] MEDS ORDERED: COREG 12.5 MG PO ONE (23:40)
[2021-08-12] MEDS ORDERED: ELIQUIS 2.5 MG TABLET PO ONE (23:41)
[2021-08-12] MEDS ORDERED: Glynase 3 MG PO ONE (23:41)
[2021-08-13] MEDS: Zosyn 3.375 GM Vial 3.375 GM in Sodium Chloride 100ML MINI-BAG PLUS 100 ML IV SCH ×4 (00:39→18:37)
[2021-08-13] MEDS: Sodium Chloride 0.9% 1000 ML 1,000 ML IV SCH (00:40)
[2021-08-13] MEDS: TYLENOL 325 MG PO PRN ×2 (03:55→14:48)
[2021-08-13] MEDS: CLINDAMYCIN-D5W 600 MG/50 ML*** 600 MG/50 ML BAG IV SCH ×3 (06:26→21:08)
[2021-08-13 07:31] LABS: Absolute Neutrophil Ct (ANC) 4.93 (1.4-6.9); Basophil (Absolute #) 0.02 (0-0.4); Eosinophil % 2.5 % (0.00-5.0); Eosinophil (Absolute #) 0.19 (0-0.5); Hematocrit 38.1 % (42-50); Hemoglobin 12.2 gm/dl (12.5-18.0); Lymphocyte (Absolute #) 1.21 (1.0-4.6); Lymphocytes % 16.1 % (24.0-44.0); Mean Cell Volume 91.4 fl (78-100); Mean Corpuscular Hemoglobin 29.3 pg (26-32); Mean Platelet Volume 9.3 fl (7.5-11.0); Monocyte (Absolute #) 1.15 (0.0-1.3); Monocytes % 15.3 % (0.0-12.0); Neutrophil % 65.8 % (36.0-66.0); Platelet Count 156 K/mm3 (150-450); Red Blood Count 4.17 M/mm3 (4.1-5.6); Red Cell Distribution Width 15.1 % (11.5-14.0); White Blood Count 7.5 K/mm3 (4.0-10.5)
[2021-08-13 07:51] LABS: ALBUMIN 3.1 g/dL (3.5-5.0); ANION GAP 10.2 MEQ/L (5-15); BILIRUBIN,TOTAL 0.5 mg/dL (0.2-1.3); Calcium 8.2 mg/dL (8.4-10.2); Creatinine 1 1.48 mg/dL (0.66-1.25); Potassium 3.7 mmol/L (3.5-5.1)
[2021-08-13] MEDS: ZOCOR 20MG PO SCH (09:02)
[2021-08-13] MEDS: NORVASC 5 MG PO SCH (09:02)
[2021-08-13] MEDS: Protonix 40MG Tablet PO SCH (09:02)
[2021-08-13] MEDS: Lasix 40 MG PO SCH (09:02)
[2021-08-13] MEDS: COREG 12.5 MG PO SCH ×2 (09:02→21:08)
[2021-08-13] MEDS: ELIQUIS 2.5 MG TABLET PO SCH ×2 (09:02→21:09)
[2021-08-13] MEDS: Klor Con 10 MEQ PO SCH ×2 (09:02→21:09)
[2021-08-13] MEDS: Glynase 3 MG PO SCH ×2 (09:03→21:10)
[2021-08-13] MEDS: ECOTRIN 81 MG PO SCH (09:03)
[2021-08-13] MEDS: FEOSOL 325 MG PO SCH (09:03)
[2021-08-14] MEDS: Zosyn 3.375 GM Vial 3.375 GM in Sodium Chloride 100ML MINI-BAG PLUS 100 ML IV SCH ×2 (00:06→05:49)
[2021-08-14 04:39] LABS: Basophil (Absolute #) 0.03 (0-0.4); Eosinophil % 4.5 % (0.00-5.0); Eosinophil (Absolute #) 0.23 (0-0.5); Hematocrit 35.9 % (42-50); Hemoglobin 11.8 gm/dl (12.5-18.0); Lymphocyte (Absolute #) 1.05 (1.0-4.6); Lymphocytes % 20.3 % (24.0-44.0); Mean Corpuscular Hemoglobin 29.6 pg (26-32); Mean Corpuscular Hgb Concent. 32.9 g/dl (32-36); Mean Platelet Volume 9.7 fl (7.5-11.0); Monocyte (Absolute #) 0.75 (0.0-1.3); Monocytes % 14.5 % (0.0-12.0); Neutrophil % 60.1 % (36.0-66.0); Platelet Count 179 K/mm3 (150-450); Red Blood Count 3.99 M/mm3 (4.1-5.6); Red Cell Distribution Width 14.9 % (11.5-14.0); White Blood Count 5.2 K/mm3 (4.0-10.5)
[2021-08-14 05:04] LABS: Calcium 8.1 mg/dL (8.4-10.2); Creatinine 1 1.43 mg/dL (0.66-1.25); EST GLOMERULAR FILTRATION RATE 53.1 ML/MIN; Potassium 3.6 mmol/L (3.5-5.1)
[2021-08-14] MEDS: CLINDAMYCIN-D5W 600 MG/50 ML*** 600 MG/50 ML BAG IV SCH (06:27)
[2021-08-14 09:47] VITALS: BP 130/63; PULSE 77; O2SAT 96
[2021-08-14] MEDS: NORVASC 5 MG PO SCH (10:01)
[2021-08-14] MEDS: COREG 12.5 MG PO SCH (10:01)
[2021-08-14] MEDS: Lasix 40 MG PO SCH (10:01)
[2021-08-14] MEDS: ECOTRIN 81 MG PO SCH (10:01)
[2021-08-14] MEDS: ELIQUIS 2.5 MG TABLET PO SCH (10:01)
[2021-08-14] MEDS: ZOCOR 20MG PO SCH (10:01)
[2021-08-14] MEDS: FEOSOL 325 MG PO SCH (10:01)
[2021-08-14] MEDS: Glynase 3 MG PO SCH (10:02)
[2021-08-14] MEDS: Klor Con 10 MEQ PO SCH (10:02)
[2021-08-14] MEDS: Protonix 40MG Tablet PO SCH (10:02)
--- NOTE | 2021-08-14 13:08 | SSS ---
DISCHARGE DIAGNOSES: 1) CELLULITIS. 2) EXPRESSIVE APHASIA. 3) MILD CHRONIC RENAL FAILURE. HOSPITAL COURSE: The patient is a 65-year-old white male patient who was having increased confusion from his usual state. He presented to the hospital emergency room with complaints of lower extremity pain. The patient was evaluated in the emergency room and found to have cellulitis in the lower extremity. The patient was admitted to the hospital for IV antibiotics, physical therapy and evaluation of his wound. He had exhibited some confusion initially upon his evaluation on the morning of 08/13/2021. The patient was oriented to place but not to time. He otherwise looked to be about his usual baseline from what I remember him being in the office. The patient previously had CVA which has left him with an expressive aphasia which is improving over time. By the morning of 08/14/2021, the patient was looking back to his usual state of health. He had physical therapy evaluation and legs wrapped. His white count was not elevated but had dropped down to 5,000 by the morning of 08/14/2021. PAST MEDICAL/SURGICAL HISTORY: The patient's medical history is otherwise significant for diabetes mellitus, hypertension, hyperlipidemia, heart failure, chronic renal insufficiency HOME MEDICATIONS: Amlodipine 10 mg daily, Eliquis 5 mg b.i.d., aspirin 81 mg a day, carvedilol 12.5 mg twice daily, Lasix 40 mg a day, glyburide 3 mg b.i.d., potassium 10 mEq b.i.d., rosuvastatin 40 mg a day. ALLERGIES: VANCOMYCIN. PHYSICAL EXAMINATION: The patient's vital signs on admission showed a temperature of 100.7F, pulse 108, respiratory rate 24, blood pressure 171/86. O2 saturation 97%. HEENT: Normocephalic, atraumatic. Pupils equal round reactive to light. Extraocular movements intact. Oropharynx is pink and moist. NECK: Supple without lymphadenopathy, thyromegaly or JVD. CHEST: Clear to auscultation. HEART: Regular rate and rhythm without significant murmurs, rubs or gallops. ABDOMEN: Soft. No palpable masses. EXTREMITIES: Revealed the chronic lymphedema with what appears to be a mild cellulitis. NEUROLOGIC: The patient is alert and oriented x3 on the morning of 08/14/2021. No focal deficits were noted. LAB DATA AND TESTS: Troponin mildly elevated but his highest was noted to be 0.064 with the highest in our lab being normal at 0.034. However, the patient has chronic renal insufficiency which is likely the reason for this and the patient having no chest discomfort or any other problems related to his heart. He did get COVID tested, respiratory syncytial virus and influenza were all negative. We followed his troponins during his stay with minimal elevation to 0.064. UA showed 51 to 100 red blood cells per high power field but otherwise appeared to be normal. His glucose nonfasting was up to 145, BUN 16, creatinine 1.54. Electrolytes were normal. Liver enzymes were normal. ProBNP was normal. Lactic acid was 1.7. He had a white count initially at 13.1 with hemoglobin 13.5 and PLT 212,000. He had CT scan of the brain without contrast which showed aging brain and degenerative microischemic changes, bilateral basal ganglia, remote lacunar infarct and small left parietal infarct. No acute intracranial abnormalities were noted. Chest x-ray showed clear, heart was not enlarged and no acute findings were noted. The patient was felt to be ready for discharge home again by 08/14/2021. He was given clindamycin at 600 mg t.i.d. and follow up in the office in a week. He will have continued physical therapy and evaluation by visiting nurses for close monitoring otherwise.
== END 2021-08-14 11:50 | disposition home health service (06) | DRG 602 ==
LOC: ED 20:02 → MED SURG 08-12 00:20 → OBSVTOIN 08-12 08:19
PROVIDERS: ADMIT Family Medicine; ATTEND Family Medicine
DX: L03.116 Cellulitis of left lower limb (principal); I63.9 Cerebral infarction, unspecified; R47.01 Aphasia; I13.0 Hypertensive heart and chronic kidney disease with heart failure and stage 1 through stage 4 chronic kidney disease, or unspecified chronic kidney disease; L03.115 Cellulitis of right lower limb; R41.82 Altered mental status, unspecified; R77.8 Other specified abnormalities of plasma proteins; I10 Essential (primary) hypertension; E11.22 Type 2 diabetes mellitus with diabetic chronic kidney disease; N18.9 Chronic kidney disease, unspecified; E78.5 Hyperlipidemia, unspecified; Z20.828 Contact with and (suspected) exposure to other viral communicable diseases; Z79.01 Long term (current) use of anticoagulants; Z79.899 Other long term (current) drug therapy
CPT/HCPCS: 0241U; 36000; 36415; 70450; 71045; 80048; 80053; 81001; 82947; 83605; 83735; 83880; 84484; 85025; 87040; 87086; 93005; 93268; 94760; 97162; 97530; 97597; 99284; J1817; A9270-GY